=== PATIENT | female | born 1960 | race African-American/Black ===

== ENCOUNTER 2020-07-29 20:46 | Inpatient (IN) | payer OTHER ==
[~2020-07-29] VITALS: Ht 167.6 cm; Wt 67.2 kg
--- NOTE | 2020-07-29 20:49 | NUR ---
PT AAOX0, VENT DEP, BIBPA FROM [facility] FOR HGB OF 4.9. PT PLACED IN BED 8 ON SAUSAGE MIXER AND PULSE OX. UPON ASSESSMENT PT CONTRACTED, HAS A TONEY CATH, G TUBE, VENT (SETTINGS IN THE NEXT NOTE.) RT WAS CALLED TO PLACE THE PT ON VENT. MD AWARE. IV 18G PLACED ON L HAND, BLOOD DRAWN, LABELED, SENT TO LAB. AWAITING MD FOR ORDERS AND EVAL. WILL CONTINUE TO MONITOR.
--- NOTE | 2020-07-29 21:08 | NUR ---
PT TEMP 94.6. WARMING MEASURES INITIATED.
--- NOTE | 2020-07-29 21:13 | NUR ---
NOTED SACRAL AREA ST 4 WITH SURROUNDING SCAR TISSUE 12.5X8X3.2 CM.
--- NOTE | 2020-07-29 21:16 | NUR ---
RT NOTE Pt rec'd trached on [facility] vent on AC mode settings given from transport RT. Pt shows no signs of resp distress or sob. Trach is patent and secured. pt sx'd for mod amt of pale yellow secretions. Vent plugged into red outlet. Ambu bag and emergency spare trach bedside. Alarms are set and audible. Will continue to monitor. Addendum: 07/29/20 at 2117 by DANUTA LI RT Amended: Links added.
[2020-07-29 21:24] LABS: BASOPHILS % (AUTO) 0.5 % (0.0-2.0); EOSINOPHILS % (AUTO) 0.2 % (0.0-6.0); LYMPHOCYTES # (AUTO) 0.6 /CMM (0.8-4.8); LYMPHOCYTES % (AUTO) 6.4 % (20.0-44.0); MEAN CORPUSCULAR HGB CONC 29 g/dl (31.0-36.0); MEAN CORPUSCULAR VOLUME 75 fL (82-100); MONOCYTES # (AUTO) 0.4 /CMM (0.1-1.30); MONOCYTES % (AUTO) 4.6 % (2.0-12.0); NEUTROPHILS # (AUTO) 8.5 /CMM (1.8-8.9); NEUTROPHILS % (AUTO) 88.3 % (43.0-81.0); PLATELET COUNT (AUTO) 837 /CMM (150-450); RED BLOOD CELL COUNT(AUTO) 2.64 MIL/uL (4.0-5.2); WHITE BLOOD COUNT (AUTO) 9.6 K/uL (4.3-11.0)
--- NOTE | 2020-07-29 21:26 | NUR ---
VENT SETTINGS: PORTEX 8 DCT AC 12 TV 400 O2 40% PEEP 5.0
--- NOTE | 2020-07-29 21:28 | NUR ---
RADIOLOGY AT BEDSIDE FOR XRAY
[2020-07-29 21:36] LABS: CALCIUM, SERUM 9.5 mg/dL (8.5-10.1); CARBON DIOXIDE 30 mmol/L (21-32); CHLORIDE 101 mmol/L (98-107); CREATININE 1.4 mg/dL (0.6-1.3); GLUCOSE 119 mg/dL (74-106); POTASSIUM 4.2 mmol/L (3.5-5.1); SODIUM SERUM 139 mmol/L (136-145); UREA NITROGEN, BLOOD 54 mg/dL (7-18)
--- NOTE | 2020-07-29 21:39 | NUR ---
CALLED RT TO TAKE PT TO CT.
[2020-07-29 21:41] LABS: ALANINE AMINOTRANSFERASE 23 U/L (12-78); ALBUMIN 1.5 g/dL (3.4-5.0); ALKALINE PHOSPHATASE 138 U/L (46-116); ASPARTATE AMINOTRANSFERASE 20 U/L (15-37); BILIRUBIN,TOTAL 0.1 mg/dL (0.2-1.0); HEMOGLOBIN 5.8 g/dL (11.5-14.8); LIPASE 174 U/L (73-393); TOTAL PROTEIN, SERUM 7.4 g/dL (6.4-8.2)
--- NOTE | 2020-07-29 21:41 | NUR ---
HGB 5.8
--- NOTE | 2020-07-29 21:41 | NUR ---
CALLED LAB FOR COVID SWAB
[2020-07-29 21:42] LABS: HEMATOCRIT 20 % (33-45)
--- NOTE | 2020-07-29 21:52 | NUR ---
BROUGHT BACK FROM CT
--- NOTE | 2020-07-29 21:52 | NUR ---
MIGUELID SWABBED, SENT TO LAB.
[2020-07-29] MEDS ORDERED: MEROPENEM 1,000 MG in IV NS 0.9% 100 ML IV ONE (22:00)
[2020-07-29] MEDS ORDERED: MEROPENEM 1 G VIAL IV ONE (22:03)
--- NOTE | 2020-07-29 22:08 | NUR ---
RT AT BEDSIDE FOR ABG
--- NOTE | 2020-07-29 22:32 | NUR ---
CALL FROM LAB. COVID NEGATIVE.
[2020-07-29 22:37] LABS: ABG BASE EXCESS 1.9 mmol/L; ABG PCO2 36.4 mmHg (35.0-45.0); ABG PH 7.468 (7.350-7.450); ABG PO2 159.5 mmHg (75.0-100.0); AaDO2 83.8 mmHg; COHb 1.2 % (0.5-1.5); MetHb 0.7 % (0.0-1.5); O2Hb 97.1 % (94.0-97.0); SITE, ABG Right Brachial; VENT MODE, BG AC 12 400 40% +5
--- NOTE | 2020-07-29 22:44 | NUR ---
CALLED TO GIVE REPORT. NURSE NOT AVAILABLE
--- NOTE | 2020-07-29 22:57 | NUR ---
CALLED TO GIVE REPORT, UNAVAILABLE.
--- NOTE | 2020-07-29 23:13 | NUR ---
REPORT GIVEN TO ELVIS LINCOLN FOR HAILEY
[2020-07-29] MEDS ORDERED: DOCU50LI GT (23:21)
[2020-07-29] MEDS ORDERED: INSU100V7 SQ (23:21)
[2020-07-29] MEDS ORDERED: FAMO20TA8 GT (23:21)
[2020-07-29] MEDS ORDERED: FOLI0.8T2 GT (23:21)
[2020-07-29] MEDS ORDERED: AMLO10TA7 GT (23:21)
[2020-07-29] MEDS ORDERED: HYDR100T27 GT (23:21)
[2020-07-29] MEDS ORDERED: HYDR-4384 GT ×2 (23:21)
[2020-07-29] MEDS ORDERED: NUTR1PAC14 GT (23:21)
[2020-07-29] MEDS ORDERED: INSU100V3 SQ (23:21)
[2020-07-29] MEDS ORDERED: ZINC220T4 GT (23:21)
[2020-07-29] MEDS ORDERED: ROPI0.255 GT (23:21)
[2020-07-29] MEDS ORDERED: ASCO-340 GT (23:21)
[2020-07-29] MEDS ORDERED: FERR220S2 GT (23:21)
[2020-07-29] MEDS ORDERED: ATOR10TA GT (23:21)
[2020-07-29] MEDS ORDERED: SODI100037 GT (23:21)
[2020-07-29] MEDS ORDERED: CLON0.5T4 GT (23:21)
[2020-07-29] MEDS ORDERED: FOLI0.4T2 GT (23:21)
[2020-07-29] MEDS ORDERED: AMIN30LI2 GT (23:21)
[2020-07-29] MEDS ORDERED: METO25TA6 GT (23:21)
[2020-07-29] MEDS ORDERED: LAMO25TA10 GT (23:21)
[2020-07-29] MEDS ORDERED: CITR15SO GT (23:21)
[2020-07-29] MEDS ORDERED: EPOE1000 SQ (23:21)
[2020-07-29] MEDS ORDERED: ASPI-1169 GT (23:21)
--- NOTE | 2020-07-29 23:25 | NUR ---
PT TRANSFERERD PER ACLS PROTOCOL
--- NOTE | 2020-07-29 23:30 | NUR ---
TANK SETTER NOTES RECEIVED PT FORM ER VIA SOPHIE ON TRACH/VENT SETTING ORDER SPO2 100% NO SIGN AND SYMPTOMS OF DISTRESS, SAFELY TRANSFER TO BED V/S CHECKED AND RECORDED, HEAD TO TOE ASSESSMENT DONE, VENT PLUGGED TO RED OUTLET, PT HAVE GTUBE ON PLACE FLUSHED AND O RESIDUAL, PT HAVE LEFT HAND #18 IV PATENT AND FLUSHED NO INFILTRATION NOTED, DR. LYNN ALREADY GIVE ORDER VIA PHONE CALL TO ER STAFF, NOTED AND CARRIED OUT, FOR BLOOD TRANSFUSION CONSENT ALREADY SECURED AT ER ABO TYPING ALSO DONE PT HAVE TONEY WITH YELLOW URINE FLOWING VIA GRAVITY, COVID 19 NEGATIVE SAFETY MEASURE INITIATED BED ON LOWEST POSITION AND LOCKED SIDE RAILS UP X 3 WILL CONT TO MONITOR
[2020-07-30] VITALS (17 sets, daily range): BP systolic 101–130; BP diastolic 37–90
[2020-07-30] MEDS ORDERED: ACETAMINOPHEN 650 MG/SUPP.RECT RC PRN
[2020-07-30] MEDS ORDERED: ONDANSETRON HCL/PF 4 MG/2 ML VIAL IV PRN
[2020-07-30] MEDS ORDERED: IV NS 0.9% 1,000 ML IV ONE
[2020-07-30 00:05] LABS: BAND % (MANUAL) 1 % (0.0-5.0); LYMPHOCYTES % (MANUAL) 8 % (16-48); MONOCYTES % (MANUAL) 3 % (0-11.0); NEUTROPHILS % (MANUAL) 87 (42-76); REACTIVE LYMPHOCYTES 1 % (0-0)
--- NOTE | 2020-07-30 00:47 | NUR ---
RN NOTES BLOOD TRANSFUSION STARTED WITH INITIAL V/S 120/56 HR 100 TEMP 97.8 SPO2 100% BLOOD VERIFICATION DONE WILL CONT TO MONITOR
--- NOTE | 2020-07-30 01:07 | NUR ---
RN NOTES BLOOD TRANSFUSION STILL ONGOING WITH CURRENT V/S 113/56 HR 97 RR 20 TEMP 97.9 SPO2 100% NO BLOOD TRANSFUSION REACTION NOTED AT THIS TIME WILL CONT TO MONITOR
--- NOTE | 2020-07-30 03:29 | NUR ---
RN NOTES 1ST BAG OF PRBC TRANSFUSION COMPLETED WITH LATEST V/S OF 114/90 HR 102 RR 16 TEMP 97.8 SPO2 100% NO TRANSFUSION REACTION NOTED WILL CONT TO MONITOR
--- NOTE | 2020-07-30 03:39 | NUR ---
RN NOTES 2ND BAG OF PRBC STARTED TO TRANSFUSE WITH LATEST V/S 114/90 HR 105 RR 16 TEMP 97.8 SPO2 100% WILL CONT TO MONITOR
--- NOTE | 2020-07-30 04:30 | NUR ---
RN NOTES 2ND BAG OF PRBC STILL TRANSFUSING WITH LATEST V/S 119/66 HR 103 RR 16TEMP 97.6 SPO2 100% NO TRANSFUSION REACTION NOTED WILL CONT TO MONITOR
--- NOTE | 2020-07-30 06:00 | NUR ---
RN NOTES BLOOD TRANSFUSION COMPLETED WITH LATEST V/S 107/50 HR 110 RR 16 TEMP 97.8 SPO2 100 WITH NO SIGN AND SYMPTOMS OF TRANSFUSION REACTION NOTED WILL CONT TO MONITOR
--- NOTE | 2020-07-30 06:26 | NUR ---
RN NOTES CALLED DR. LYNN REGARDING THE HOME MEDICATION OF THE PT, HE SAID HE WILL SEE THE PT THEN HE WILL RECONCILE THE MEDICATION PT IS NPO FOR NOW
--- NOTE | 2020-07-30 06:37 | NUR ---
CALLED PT SON MR. WILKINS AND ASK ABOUT THE FLU VACCINE AND PNEUMONIA VACCINE IF THEY WANT IT TO BE ADMINISTER TO HIS MOTHER, PT SON MR WILKINS REFUSED THE VACCINE, RISK AND BENEFITS EXPLAINED BUT HE STILL REFUSING NOTED AND CARRIED OUT
--- NOTE | 2020-07-30 06:51 | NUR ---
RN NOTES PT ON BED NO SIGN AND SYMPTOMS OF DISTRESS STILL ON TRACH/VENT SETTING ORDER SPO2 98% TELE MONITOR READS SINUS RHYTHM 90'S TO SINUS TACHY 110'S SAFETY MEASURE MAINTAINED BED ON LOWEST POSITION AND LOCKED SIDE RAILS UP X 2, PT STILL NPO UNTIL FURTHER ORDERS NO SIGNIFICANT CHANGES ON CONDITION NOTED ALL NEEDS ATTENDED WILL ENDORSE TO AM SHIFT NURSE
--- NOTE | 2020-07-30 07:30 | NUR ---
NADYA RN AM NOTES RECEIVED PT IN BED, OPENS EYES, WITH PORTEX 7 TRACH TO MECHANICAL VENT SETTING - AC 12 TV 400 FIO2 40% PEEP 5, BREATHING EVEN AND UNLABORED, NO SIGN AND SYMPTOMS OF DISTRESS, SINUS RHYTHM TO SINUS TACHY ON HEART MONITOR, HR 106, NO SIGNS OF PAIN, PT HAVE LEFT HAND #18 IV,FLUSHES WELL, SITE CLEAR. ONGOING NS AT 75 ML/HR. PT HAVE GTUBE IN PLACE, CHECKED FOR PLACEMENT, O RESIDUAL, CLAMPED FOR NOW. TONEY CATH IN PLACE, DRAINING YELLOW COLORED URINE, CLEAR, ADEQUATE AMOUNT VIA GRAVITY, SEE NURSING FLOWSHEET FOR SKIN ISSUES. FOR WOUND CONSULT. WAITING FOR DR. LYNN TO SEE PATIENT AND FOR FURTHER ORDERS. WILL TURN AND REPOSITION Q [address] ME[address] PL[address].BED LOW AND LOCKED, SR UP X2, WILL CONTINUE TO MONITOR.
[2020-07-30 08:35] LABS: BASOPHILS % (AUTO) 0.3 % (0.0-2.0); EOSINOPHILS % (AUTO) 0.2 % (0.0-6.0); HEMATOCRIT 26 % (33-45); LYMPHOCYTES # (AUTO) 0.4 /CMM (0.8-4.8); LYMPHOCYTES % (AUTO) 5.5 % (20.0-44.0); MEAN CORPUSCULAR HGB CONC 31 g/dl (31.0-36.0); MEAN CORPUSCULAR VOLUME 77 fL (82-100); MONOCYTES # (AUTO) 0.4 /CMM (0.1-1.30); MONOCYTES % (AUTO) 4.9 % (2.0-12.0); NEUTROPHILS % (AUTO) 89.1 % (43.0-81.0); PLATELET COUNT (AUTO) 746 /CMM (150-450); RED BLOOD CELL COUNT(AUTO) 3.36 MIL/uL (4.0-5.2); WHITE BLOOD COUNT (AUTO) 7.9 K/uL (4.3-11.0)
[2020-07-30] MEDS: PANTOPRAZOLE 40 MG VIAL IV SCH ×2 (08:38→22:11)
[2020-07-30 08:47] LABS: CALCIUM, SERUM 9.3 mg/dL (8.5-10.1); CREATININE 1.4 mg/dL (0.6-1.3); POTASSIUM 4.2 mmol/L (3.5-5.1)
--- NOTE | 2020-07-30 09:30 | NUR ---
RN NOTES DUE MEDS GIVEN
[2020-07-30] MEDS: FAMOTIDINE/PF INJ 20 MG/2 ML VIAL IV SCH ×2 (10:11→22:15)
[2020-07-30] MEDS ORDERED: NEPRO 1,000 ML BOTTLE GT PRN ×2 (11:30→13:33)
[2020-07-30] MEDS ORDERED: DEXTROSE 50%-WATER 50 ML DISP.SYRIN IV PRN (11:30)
[2020-07-30] MEDS ORDERED: HYDROCODONE/APAP 5/325MG TABLET GT SCH (11:30)
[2020-07-30] MEDS: BLOOD SUGAR DIAGNOSTIC 1 EACH STRIP IN SCH ×3 (12:11→22:52)
[2020-07-30] MEDS: clonazePAM 0.5 MG TABLET GT SCH ×2 (12:17→22:14)
[2020-07-30] MEDS ORDERED: PIPERACILLIN /TAZOBACTAM 3.375 G in IV D5W 100 ML IV SCH (13:00)
[2020-07-30] MEDS ORDERED: PIPERACILLIN /TAZOBACTAM 3.375 G in IV D5W 50 ML IV ONE (13:00)
[2020-07-30] MEDS: hydrALAZINE HCL 50 MG TABLET GT SCH ×2 (13:00→22:15)
[2020-07-30] MEDS ORDERED: MEROPENEM 1 G in IV NS 0.9% 100 ML IV ONE (13:30)
--- NOTE | 2020-07-30 13:39 | NUR ---
RN NOTES CRITICAL RESULTS CALLED IN TO DR. LYNN: FIBRINOGEN >900 AND APTT 84.2. NO NEW ORDERS RECEIVED.
[2020-07-30] MEDS: SOD FERRIC GLUC 125 MG in IV NS 0.9% 100 ML IV SCH (14:06)
[2020-07-30 14:07] LABS: D-DIMER 0.62 mg/L(FEU (0.17-0.50); PLATELET COUNT (AUTO) 746 /CMM (150-450)
[2020-07-30] MEDS: ropiniROLE 0.5 MG TABLET GT SCH ×2 (14:08→22:10)
--- NOTE | 2020-07-30 16:38 | NUR ---
RN NOTES SPECIMEN FOR OCCULT BLOOD STOOL COLLECTED AND CALLED IN TO [facility] FOR TIRE VULCANIZER
[2020-07-30] MEDS: DOCUSATE SODIUM LIQ 100 MG/10 ML UDC GT SCH (17:09)
--- NOTE | 2020-07-30 18:14 | NUR ---
LINESPERSON CLOSING NOTES: PT RESTING IN BED, NON-VERBAL. WITH SHILEY 8 TRACH TO MECHANICAL VENT - SETTINGS AC 12 TV 450 FIO2 30%, PEEP 5, 95% O2. SINUS TACH HR 107. NO SIGNS OF PAIN, LEFT HAND G 18 NS AT TKO, SITE CLEAR. G-TUBE FEEDING RUNNING AT 35 ML/HOUR. FLUSHED WITH WATER. PLACEMENT CHECKED WITH [address]ONEY CATH IN PL[address] WITH ADEQUATE AMOUNT OF YELLOW COLORED URINE WITH 1100 ML OUTPUT. BED IN LOCKED AND LOWEST POSITION. TURNED AND REPOSITIONED Q 2 HOURS. PERFORMED PM CARE AND PRESCRIBED WOUND TREATMENT. SAFETY MEASURES IMPLEMENTED. CALL LIGHT WITHIN REACH. ALL NEEDS MET. WILL ENDORSE TO NEXT SHIFT FOR HAILEY.
[2020-07-30 21:00] LABS: OCCULT BLOOD STOOL NEGATIVE (NEGATIVE)
[2020-07-30] MEDS: METOPROLOL TARTRATE 25 MG TABLET GT SCH (22:11)
[2020-07-30] MEDS: ATORVASTATIN 10 MG TABLET GT SCH (22:15)
[2020-07-30] MEDS: MEROPENEM 1 G in IV NS 0.9% 100 ML IV SCH (22:15)
[2020-07-30] MEDS: MORPHINE SULFATE INJ 2 MG/ML DISP.SYRIN IV PRN (22:19)
[2020-07-30] MEDS: INSULIN REGULAR, HUMAN 100 UNIT/ML 3 ML VIAL SQ PRN (22:51)
[2020-07-30] MEDS: INSULIN GLARGINE, 100 UNIT/ML CARTRIDGE SQ SCH (22:55)
[2020-07-31] VITALS: BP_SYST 113; BP_SYST 141; BP_DIAS 37; BP_DIAS 85
[2020-07-31 04:00] VITALS: BP 113/46
[2020-07-31] MEDS: ropiniROLE 0.5 MG TABLET GT SCH ×3 (05:21→21:17)
[2020-07-31] MEDS: clonazePAM 0.5 MG TABLET GT SCH ×3 (05:22→21:17)
[2020-07-31] MEDS: MEROPENEM 1 G in IV NS 0.9% 100 ML IV SCH ×3 (05:22→21:14)
[2020-07-31] MEDS: hydrALAZINE HCL 50 MG TABLET GT SCH ×3 (05:22→21:00)
[2020-07-31] MEDS: INSULIN REGULAR, HUMAN 100 UNIT/ML 3 ML VIAL SQ PRN ×3 (05:23→22:49)
[2020-07-31] MEDS: BLOOD SUGAR DIAGNOSTIC 1 EACH STRIP IN SCH ×4 (05:23→22:48)
[2020-07-31 05:53] LABS: BASOPHILS % (AUTO) 0.4 % (0.0-2.0); EOSINOPHILS % (AUTO) 0.4 % (0.0-6.0); HEMATOCRIT 25 % (33-45); HEMOGLOBIN 7.6 g/dL (11.5-14.8); LYMPHOCYTES # (AUTO) 0.8 /CMM (0.8-4.8); MEAN CORPUSCULAR HGB CONC 31 g/dl (31.0-36.0); MEAN CORPUSCULAR VOLUME 78 fL (82-100); MONOCYTES # (AUTO) 0.7 /CMM (0.1-1.30); MONOCYTES % (AUTO) 8.3 % (2.0-12.0); NEUTROPHILS # (AUTO) 6.5 /CMM (1.8-8.9); NEUTROPHILS % (AUTO) 80.9 % (43.0-81.0); PLATELET COUNT (AUTO) 748 /CMM (150-450); RED BLOOD CELL COUNT(AUTO) 3.15 MIL/uL (4.0-5.2); WHITE BLOOD COUNT (AUTO) 8.1 K/uL (4.3-11.0)
--- NOTE | 2020-07-31 06:30 | NUR ---
RN notes Resting comfortably in bed with no distress noted. Breathing even and unlabored. Vent setting well tolerated well. Obtunded, non verbal. No physical manifestation of pain or discomfort. Vital signs wnl. No significant change of condition. Kept clean and dry. Will endorse to next shift for continuity of care. Addendum: 07/31/20 at 0638 by TALIA ARVIZU RN RN notes Resting comfortably in bed with no distress noted. Breathing even and unlabored. Vent setting well tolerated well. Obtunded, non verbal. No physical manifestation of pain or discomfort except during treatment of sacral wounds. Morphine IV administered, with relief. Vital signs wnl. No significant change of condition. Kept clean and dry. Will endorse to next shift for continuity of care.
[2020-07-31 06:34] LABS: CALCIUM, SERUM 9.1 mg/dL (8.5-10.1); CREATININE 1.5 mg/dL (0.6-1.3); POTASSIUM 3.9 mmol/L (3.5-5.1)
[2020-07-31 08:00] VITALS: BP 103/50
--- NOTE | 2020-07-31 08:37 | NUR ---
WOUND CARE CONSULT: PT PRESENTS WITH STAGE 4 ULCER TO SACRUM AND STAGE 3 ULCER TO RT POSTERIOR BUTTOCK/THIGH AREA, PRESENT ON ADMISSION. RECOMMEND SURGICAL CONSULT. DR MOODY NOTIFIED OF CONSULT REQUEST. RECOMMENDATIONS MADE FOR SKIN PROTECTION. DISCUSSED WITH NURSING STAFF. [facility] IN AGREEMENT WITH PLAN OF CARE. Addendum: 07/31/20 at 0838 by SARY INIGUEZ WNDNU Amended: Links added.
[2020-07-31] MEDS: AMLODIPINE BESYLATE 10 MG TABLET GT SCH (09:00)
[2020-07-31] MEDS ORDERED: Z GUARD REMEDY 2 OZ OINT TP PRN (09:00)
[2020-07-31] MEDS ORDERED: FAMOTIDINE (20 MG) 20 MG TABLET GT SCH (09:00)
[2020-07-31] MEDS: METOPROLOL TARTRATE 25 MG TABLET GT SCH ×2 (09:00→21:00)
[2020-07-31] MEDS: LamoTRIgine 25 MG TABLET GT SCH (09:28)
[2020-07-31] MEDS: ASPIRIN 81 MG TAB.CHEW GT SCH (09:29)
[2020-07-31] MEDS: FAMOTIDINE/PF INJ 20 MG/2 ML VIAL IV SCH ×2 (09:31→21:09)
[2020-07-31] MEDS: PANTOPRAZOLE 40 MG VIAL IV SCH ×2 (09:31→21:10)
[2020-07-31] MEDS: Z GUARD REMEDY 2 OZ OINT TP SCH (09:32)
[2020-07-31] MEDS: INSULIN GLARGINE, 100 UNIT/ML CARTRIDGE SQ SCH ×2 (09:43→21:00)
[2020-07-31] MEDS: DAKINS QUARTER STRENGTH (0.125%) 480 ML BOTTLE TOP SCH (10:00)
[2020-07-31] MEDS ORDERED: LIDOCAINE 1%-EPI 1:100,000 20 ML VIAL TP ONE (10:30)
[2020-07-31] MEDS ORDERED: SILVER NITRATE APPLICATOR 1 EA BOX TP PRN (10:30)
--- NOTE | 2020-07-31 11:47 | NUR ---
fever 99.8, will give PRN tylenol
[2020-07-31 12:00] VITALS: BP 116/53
--- NOTE | 2020-07-31 12:45 | NUR ---
DEPLOYMENT MANAGER: got pt from SALAZ[facility] Mcclain, pt.is obtunded, can open eyes, no eyes contact, unable to follow commands, contracted/rigid, rest, no grimacing, O2sat. over 94%, no SOB, FiO2 40%, suctioned: small sputum amount, ordered resp.Tx, Chest PT, will notify RT, SR, SBP WNL by report, GTF residual WNL, all wound care done by report, Lidocaine is in cassette, plan: sacral debridement, L.hand PIVL: blood return+, last BG 101, ISS+, urinated well by report, Tmax 99.8/Tylenol+, Antbxs+, no acute bleeding by report, H/H 7.6/25
[2020-07-31] MEDS: IPRATROPIUM NEB FS 0.5 MG/2.5 ML AMPUL.NEB NEB SCH ×4 (13:00→23:55)
[2020-07-31] MEDS: ACETYLCYSTEINE 20% SOLN 800 MG/4 ML VIAL NEB SCH ×3 (13:00→23:55)
[2020-07-31] MEDS: ALBUTEROL HALF STRENGTH 1.25 MG/3 ML VIAL.NEB NEB SCH ×3 (13:00→21:25)
--- NOTE | 2020-07-31 13:37 | NUR ---
RN Opening notes Received patient in bed, on mechanical ventilator, AC 12 TV 400 FIO2 40% PEEP 5, O2 sat 99%, A/O x0, obtunded, on cardiac telemonitoring, sinus rhythm, Larson catheter draining to gravity, urine is clear yellow, contractures, sacral wound not stageable, Nepro 30ml/hr, tolerating diet, IV left hand #18 gauge running TKO at 3cc/hr.
--- NOTE | 2020-07-31 14:30 | NUR ---
KEYMODULE ASSEMBLY SUPERVISOR: notified RT Divya regarding new orders
[2020-07-31] MEDS: SOD FERRIC GLUC 125 MG in IV NS 0.9% 100 ML IV SCH (14:49)
[2020-07-31 16:00] VITALS: BP 107/50
--- NOTE | 2020-07-31 16:00 | NUR ---
Got back patient from Eder, tolerating current settings well, cont to monitor
[2020-07-31 16:13] LABS: APPEARANCE,URINE CLEAR (CLEAR); BILIRUBIN,URINE NEGATIVE (NEGATIVE); BLOOD, URINE NEGATIVE Ery/uL (NEGATIVE); COLOR,URINE YELLOW (YELLOW); KETONES,URINE NEGATIVE (NEGATIVE); LEUKOCYTE ESTERASE ,URINE TRACE (NEGATIVE); NITRITE, URINE NEGATIVE (NEGATIVE); PH,URINE 7.5 (5.0-8.0); PROTEIN,URINE 30 mg/dl (NEGATIVE); UGLUCOSE NEGATIVE (NEGATIVE); UROBILINOGEN,URINE 0.2 EU/dL (0.2)
[2020-07-31 16:20] LABS: CREATININE, URINE 28.8 MG/DL (30.0-125.0); URINE TOTAL PROTEIN 67.6 mg/dL (0-11.9)
[2020-07-31 16:40] LABS: BACTERIA,URINE RARE /HPF (None Seen); RBC,URINE 0-2 /HPF (0-2); SQUAMOUS EPITHELIAL CELL,UR 0-2 /HPF (None Seen)
[2020-07-31 16:59] LABS: EOSINOPHIL,URINE None Seen
--- NOTE | 2020-07-31 17:28 | NUR ---
Checked patient blood glucose at 1720 using Acu check . BG was 71 so rechecked and got 80.
[2020-07-31] MEDS: DOCUSATE SODIUM LIQ 100 MG/10 ML UDC GT SCH (18:10)
--- NOTE | 2020-07-31 19:08 | NUR ---
RN CLOSING NOTES Patient is in room , tolerating vent settings well, no change on status, Larson cath in place, output is 750cc, with clear, yellow urine. Tele-monitor shows SR 84s. Wound care provided, comfort needs attended , safety measures implemented, bed is locked, call light in reach, HOB elevated, will endorse to PM shift RN for HAILEY
--- NOTE | 2020-07-31 19:50 | NUR ---
RT Pt received trached on mechanical ventilation with noted settings. Vent alarms are set and audible with BVM and spare trach by bedside. No SOB or respiratory distress noted. Addendum: 08/01/20 at 0532 by SERENITY BANUELOS RT Amended: Links added.
[2020-07-31 20:00] VITALS: BP 95/56
[2020-07-31] MEDS: ATORVASTATIN 10 MG TABLET GT SCH (21:19)
[2020-08-01] VITALS: BP 97/62
[2020-08-01] MEDS: ALBUTEROL HALF STRENGTH 1.25 MG/3 ML VIAL.NEB NEB SCH ×6 (00:59→23:53)
[2020-08-01] MEDS: IPRATROPIUM NEB FS 0.5 MG/2.5 ML AMPUL.NEB NEB SCH ×6 (03:35→23:53)
[2020-08-01 04:00] VITALS: BP 97/62
[2020-08-01] MEDS: MORPHINE SULFATE INJ 2 MG/ML DISP.SYRIN IV PRN (04:13)
--- NOTE | 2020-08-01 04:15 | NUR ---
RN notes Received patient in bed resting comfortably. No apparent distress noted. Breathing even and unlabored. Vent setting well tolerated well. Obtunded, non verbal. Facial grimacing noted during sacral wound treatment. MOS4 administered, with relief. Vital signs wnl. No significant change of condition. Kept clean and dry. Will endorse to next shift for continuity of care.
[2020-08-01] MEDS: clonazePAM 0.5 MG TABLET GT SCH ×3 (04:42→21:29)
[2020-08-01] MEDS: ropiniROLE 0.5 MG TABLET GT SCH ×3 (04:43→21:29)
[2020-08-01] MEDS: MEROPENEM 1 G in IV NS 0.9% 100 ML IV SCH ×3 (04:44→21:33)
[2020-08-01] MEDS: hydrALAZINE HCL 50 MG TABLET GT SCH ×3 (04:49→21:31)
[2020-08-01] MEDS: BLOOD SUGAR DIAGNOSTIC 1 EACH STRIP IN SCH ×4 (04:50→21:53)
[2020-08-01 06:49] LABS: BASOPHILS % (AUTO) 0.5 % (0.0-2.0); EOSINOPHILS % (AUTO) 0.6 % (0.0-6.0); HEMATOCRIT 23 % (33-45); HEMOGLOBIN 7.2 g/dL (11.5-14.8); LYMPHOCYTES # (AUTO) 1.1 /CMM (0.8-4.8); LYMPHOCYTES % (AUTO) 14.8 % (20.0-44.0); MEAN CORPUSCULAR HGB CONC 31 g/dl (31.0-36.0); MEAN CORPUSCULAR VOLUME 78 fL (82-100); MONOCYTES # (AUTO) 0.6 /CMM (0.1-1.30); MONOCYTES % (AUTO) 7.2 % (2.0-12.0); NEUTROPHILS # (AUTO) 5.9 /CMM (1.8-8.9); NEUTROPHILS % (AUTO) 76.9 % (43.0-81.0); PLATELET COUNT (AUTO) 680 /CMM (150-450); RED BLOOD CELL COUNT(AUTO) 3.01 MIL/uL (4.0-5.2); WHITE BLOOD COUNT (AUTO) 7.7 K/uL (4.3-11.0)
[2020-08-01 07:15] LABS: BILIRUBIN,TOTAL 0.1 mg/dL (0.2-1.0); CALCIUM, SERUM 8.7 mg/dL (8.5-10.1); CREATININE 1.5 mg/dL (0.6-1.3); MAGNESIUM 2.4 mg/dL (1.8-2.4); PHOSPHORUS 3.1 mg/dL (2.5-4.9); POTASSIUM 3.5 mmol/L (3.5-5.1); TOTAL PROTEIN, SERUM 6.6 g/dL (6.4-8.2)
[2020-08-01 07:23] LABS: ALBUMIN 1.3 g/dL (3.4-5.0)
--- NOTE | 2020-08-01 07:40 | NUR ---
RT PATIENT REC'D TRACHED ON [facility] VENT, NO MARLIN BURNETTE BAG AT HOB Addendum: 08/01/20 at 1701 by KAIN AMARO RT Amended: Links added.
[2020-08-01] MEDS: ACETYLCYSTEINE 20% SOLN 800 MG/4 ML VIAL NEB SCH ×3 (07:47→23:53)
[2020-08-01 08:00] VITALS: BP_SYST 116; BP_SYST 139; BP_DIAS 73
--- NOTE | 2020-08-01 08:04 | NUR ---
PHOTOGRAPH PRINTER NOTE: PT IN BED WITH EYES OPEN, OBTUNDED. PT ON PRESCRIBED TRACH/VENT SETTINGS: PORTEX #8, AC 12, TV 400, FIO2 40%, PEEP 5. NO RESPIRATORY DISTRESS, SOB. PT HAS LEFT HAND AC #18, INTACT AND TKO. NO SIGNS OF INFILTRATION OR INFECTION. PT ON MONITOR SHOWING SINUS RHYTHM. PT HAS SACRAL WOUND PACKED WITH DAKINS GAUZE. DRESSING INTACT AND DRY. PT HAS G-TUBE, INTACT AND RUNNING NEPRO AT 30 ML/HR. PT IN BED LOCKED LOWEST POSITION. CALL LIGHT WITHIN REACH. ALL SAFETY MEASURES IN PLACE. WILL CONTINUE TO MONITOR CLOSELY.
--- NOTE | 2020-08-01 08:30 | NUR ---
CATALYST UNIT OPERATOR NOTE: PT TEMP ELEVATED AT 100.1, COOLING MEASURES IN PLACE, ICE PACKS PLACED IN THE AXILLARY BILATERALLY
[2020-08-01] MEDS: ASPIRIN 81 MG TAB.CHEW GT SCH (08:35)
[2020-08-01] MEDS: METOPROLOL TARTRATE 25 MG TABLET GT SCH ×2 (08:36→21:31)
[2020-08-01] MEDS: PANTOPRAZOLE 40 MG VIAL IV SCH (08:38)
[2020-08-01] MEDS: FAMOTIDINE/PF INJ 20 MG/2 ML VIAL IV SCH (08:38)
[2020-08-01] MEDS: AMLODIPINE BESYLATE 10 MG TABLET GT SCH (08:38)
[2020-08-01] MEDS: LamoTRIgine 25 MG TABLET GT SCH (08:38)
[2020-08-01] MEDS: Z GUARD REMEDY 2 OZ OINT TP SCH (09:18)
[2020-08-01] MEDS: DAKINS QUARTER STRENGTH (0.125%) 480 ML BOTTLE TOP SCH (09:19)
[2020-08-01] MEDS: INSULIN GLARGINE, 100 UNIT/ML CARTRIDGE SQ SCH ×2 (09:28→21:52)
[2020-08-01 12:00] VITALS: BP 105/55
--- NOTE | 2020-08-01 12:00 | NUR ---
STOCK PATCH SAWYER NOTE: PT TEMP DECREASED TO 95.5. COOLING MEASURES D/C.
--- NOTE | 2020-08-01 12:40 | NUR ---
MAILING MACHINE OPERATOR NOTE: 1300 DENITA DOSE OF HYDRALAZINE HELD. BP 105/55, PULSE 85.
--- NOTE | 2020-08-01 13:33 | NUR ---
SALES REPRESENTATIVE RAW FIBERS NOTE: PER PHARMACY, RN TO DELAY ADMINISTERING 1400 DOSE OF FERRLECIT IV UNTIL MERREM ABX IV COMPLETE.
[2020-08-01] MEDS: SOD FERRIC GLUC 125 MG in IV NS 0.9% 100 ML IV SCH (15:09)
[2020-08-01 16:00] VITALS: BP 108/42
[2020-08-01] MEDS: DOCUSATE SODIUM LIQ 100 MG/10 ML UDC GT SCH (18:09)
[2020-08-01] MEDS: INSULIN REGULAR, HUMAN 100 UNIT/ML 3 ML VIAL SQ PRN (18:12)
--- NOTE | 2020-08-01 18:35 | NUR ---
DISPUTE RESOLUTION SPECIALIST NOTE: PT IN BED, EYES OPEN BUT NONVERBAL, OBTUNDED. PT ON PRESCRIBED TRACH/VENT SETTINGS: PORTEX #7, AC 12, TV 400, FIO2 40%, PEEP 5. NO SIGNS OF RESPIRATORY DISTRESS, SOB. PT ON EXTERNAL CREPING MACHINE OPERATOR HELPER SHOWING ST 109, PT HAS TONEY CATHETER WITH CLEAR YELLOW URINE DRAINING, U/O 800 THIS SHIFT. PT HAS LEFT HAND IV #18 RUNNING TKO. PT HAS G-TUBE RUNNING NEPRO @30 ML/HR. G-TUBE INTACT, NO SIGNS OF LEAKING WITH MINIMAL RESIDUAL. ALL WOUND TX COMPLETED, DRESSINGS DRY AND INTACT. PT IN BED LOWEST LOCKED POSITION. CALL LIGHT WITHIN REACH. ALL SAFETY MEASURES IN PLACE. WILL GIVE REPORT TO ONCOMING RN FOR HAILEY.
--- NOTE | 2020-08-01 19:15 | NUR ---
RN NOTE PATIENT IS 60 Y/O FEMALE WITH DX OF ANEMIA. PATIENT IS OBTUNDED, VENT DEPENDANT, OPENS EYES. O2 SAT IS 94% AT THIS TIME. BREATHING IS EVEN AND UNLABORED. NO SOB NOTED AT THIS TIME. PATIENT IS BED BOUND. WOUND DRESSING NOTED ON SACRAL AREA. ON GTF NEPHRO RUNNING AT 30 ML/HR WITH 10 ML RESIDUAL NOTED. PATIENT ON TONEY CATH, URINE IS CLEAR AND YELLOW IN COLOR. IV SITE ON LEFT HAND GAUGE 18 IS CLEAN, DRY, AND PATENT. NO APPARENT DISTRESS NOTED AT THIS TIME. WILL CONTINUE TO MONITOR.
[2020-08-01 20:00] VITALS: BP 107/43
[2020-08-01] MEDS ORDERED: GLUCERNA 1.2 1,000 ML BOTTLE GT PRN (20:30)
[2020-08-01] MEDS: ATORVASTATIN 10 MG TABLET GT SCH (21:29)
[2020-08-01] MEDS: PANTOPRAZOLE 40 MG/PACK PACK GT SCH (21:29)
[2020-08-02] VITALS: BP 126/59
[2020-08-02] MEDS: ALBUTEROL HALF STRENGTH 1.25 MG/3 ML VIAL.NEB NEB SCH ×5 (03:27→20:20)
[2020-08-02] MEDS: IPRATROPIUM NEB FS 0.5 MG/2.5 ML AMPUL.NEB NEB SCH ×5 (03:27→20:20)
[2020-08-02 04:00] VITALS: BP 126/62
[2020-08-02] MEDS: clonazePAM 0.5 MG TABLET GT SCH ×3 (04:05→20:37)
[2020-08-02] MEDS: ropiniROLE 0.5 MG TABLET GT SCH ×3 (04:05→20:34)
[2020-08-02] MEDS: hydrALAZINE HCL 50 MG TABLET GT SCH ×3 (04:06→20:39)
[2020-08-02] MEDS: MEROPENEM 1 G in IV NS 0.9% 100 ML IV SCH ×3 (04:06→20:34)
[2020-08-02 06:43] LABS: BASOPHILS # (AUTO) 0.1 /CMM (0.0-0.2); BASOPHILS % (AUTO) 0.7 % (0.0-2.0); EOSINOPHILS % (AUTO) 1.2 % (0.0-6.0); HEMATOCRIT 23 % (33-45); HEMOGLOBIN 7.2 g/dL (11.5-14.8); LYMPHOCYTES # (AUTO) 1.1 /CMM (0.8-4.8); LYMPHOCYTES % (AUTO) 13.3 % (20.0-44.0); MEAN CORPUSCULAR HGB CONC 31 g/dl (31.0-36.0); MEAN CORPUSCULAR VOLUME 78 fL (82-100); MONOCYTES # (AUTO) 0.6 /CMM (0.1-1.30); MONOCYTES % (AUTO) 6.9 % (2.0-12.0); NEUTROPHILS # (AUTO) 6.3 /CMM (1.8-8.9); NEUTROPHILS % (AUTO) 77.9 % (43.0-81.0); PLATELET COUNT (AUTO) 686 /CMM (150-450); RED BLOOD CELL COUNT(AUTO) 3.01 MIL/uL (4.0-5.2)
[2020-08-02 06:51] LABS: CALCIUM, SERUM 8.6 mg/dL (8.5-10.1); CREATININE 1.2 mg/dL (0.6-1.3); MAGNESIUM 2.1 mg/dL (1.8-2.4); POTASSIUM 3.7 mmol/L (3.5-5.1)
--- NOTE | 2020-08-02 06:54 | NUR ---
RN NOTE PATIENT REMAINED STABLE THROUGHOUT THE NIGHT. NO SIGNIFICANT CHANGES NOTED. PATIENT IS KEPT CLEAN, DRY, AND COMFORTABLE. REPOSITIONED Q2H. ALL DUE MEDS GIVEN ORDERED AND TOLERATED WELL. IN NO APPARENT DISTRESS NOTED. ALL NEEDS ATTENDED AND MET. WILL CONTINUE TO MONITOR.
[2020-08-02] MEDS: ACETYLCYSTEINE 20% SOLN 800 MG/4 ML VIAL NEB SCH ×2 (07:37→15:08)
--- NOTE | 2020-08-02 07:51 | NUR ---
OBSERVER GRAVITY PROSPECTING NOTE: PT IS IN BED EYES CLOSED, AND OBTUNDED. PT ON PRESCRIBED TRACH/VENT SETTINGS: pORTEX #7, AC 12, TV 400, FIO2 40%, PEEP 5. NO RESPIRATORY DISTRESS OR SOB. O2 SATURATION 100 AT THIS TIME. PT ON PETROLEUM REFINERY LABORER SHOWS ST 109. PT HAS SACRAL WOUND PACKED WITH DAKINS GAUZE, DRESSING INTACT AND DRY AT THIS TIME. PT HAS LEFT HAND #18 IV, INTACT AND PATENT, NO SIGNS OF INFECTION OR INFILTRATION. G-TUBE PATENT WITH NO SIGNS OF LEAKING RUNNING GLUCERNA 1.2 @ 30 ML/HR. PT IN BED LOCKED LOWEST POSITION. CALL LIGHT WITHIN REACH. ALL SAFETY MEASURES IN PLACE. WILL CONTINUE TO MONITOR CLOSELY.
[2020-08-02 08:00] VITALS: BP 112/48
[2020-08-02] MEDS: METOPROLOL TARTRATE 25 MG TABLET GT SCH ×2 (08:58→20:40)
[2020-08-02] MEDS: ASPIRIN 81 MG TAB.CHEW GT SCH (08:59)
[2020-08-02] MEDS: PANTOPRAZOLE 40 MG/PACK PACK GT SCH ×2 (08:59→20:34)
[2020-08-02] MEDS: LamoTRIgine 25 MG TABLET GT SCH (08:59)
[2020-08-02] MEDS: AMLODIPINE BESYLATE 10 MG TABLET GT SCH (09:00)
[2020-08-02] MEDS: BLOOD SUGAR DIAGNOSTIC 1 EACH STRIP IN SCH ×4 (09:55→20:54)
[2020-08-02] MEDS: INSULIN GLARGINE, 100 UNIT/ML CARTRIDGE SQ SCH ×2 (09:55→20:57)
[2020-08-02] MEDS: DAKINS QUARTER STRENGTH (0.125%) 480 ML BOTTLE TOP SCH (09:55)
[2020-08-02] MEDS: Z GUARD REMEDY 2 OZ OINT TP SCH (09:56)
--- NOTE | 2020-08-02 10:00 | NUR ---
CIVIL ATTORNEY NOTE: G-TUBE FEEDING INCREASED FROM 30 ML/HR TO 60 ML/HR PER MD ORDER. RESIDUAL OF LESS THAN 10 ML.
[2020-08-02 12:00] VITALS: BP 116/45
[2020-08-02] MEDS: INSULIN REGULAR, HUMAN 100 UNIT/ML 3 ML VIAL SQ PRN ×2 (12:47→20:54)
--- NOTE | 2020-08-02 14:00 | NUR ---
CHLORINATOR NOTE: RN TO DELAY HANGING 1400 DOSE OF IV FERRLECIT UNTIL MERREM ABX IV COMPLETE, PER PHARMACY RECOMMENDATION OF IV COMPATIBILITY.
--- NOTE | 2020-08-02 15:30 | NUR ---
REINFORCED IRONWORKER NOTE: ALL WOUND TX COMPLETED, SACRAL WOUND WITH DAKINS GAUZE, ABDOMINAL PADS TO COVER. MEPILEX APPLIED TO RIGHT BUTTOCK. WOUND CULTURE COLLECTED AND SENT TO LAB
[2020-08-02 16:00] VITALS: BP 119/55
[2020-08-02] MEDS: SOD FERRIC GLUC 125 MG in IV NS 0.9% 100 ML IV SCH (17:09)
[2020-08-02] MEDS: DOCUSATE SODIUM LIQ 100 MG/10 ML UDC GT SCH (17:14)
--- NOTE | 2020-08-02 18:00 | NUR ---
REGIONAL SALES REPRESENTATIVE NOTE: DR. GALINDO NOTIFIED RN THAT INFECTIOUS DISEASE WILL CONSULT WITH PT. MD STATES POSSIBLE INFECTION CAUSING ANEMIA IN PT.
--- NOTE | 2020-08-02 18:58 | NUR ---
EDITOR NOTE: PT IN BED, EYES OPEN, OBTUNDED AND NONVERBAL. PT ON PRESCRIBED TRACH/VENT SETTINGS: PORTEX #7, AC 12, TV 400, FIO2 40%, PEEP 5. NO RESPIRATORY DISTRESS OR SOB. PT ON EXTERNAL MONITOR SHOWING SR 81. PT HAS TONEY DRAINING YELLOW CLEAR URINE, WITH 650 U/0 THIS SHIFT. PT HAS LEFT HAND #18 PIV, INTACT AND FLUSHED WELL, RUNNING TKO. NO SIGNS OF INFECTION OR INFILTRATION. ALL WOUND TX COMPLETE, DRESSINGS INTACT AND DRY. PT HAS G-TUBE RUNNING gLUCERNA 1.2 @ 60 ML/HR, TO BE D/C AT 2100 PER SURVEY SUPERVISOR NOTES. BED IN LOWEST LOCKED POSITION, ALL SAFETY MEASURES IN PLACE, CALL LIGHT WITHIN REACH. WILL GIVE REPORT TO ONCOMING RN FOR HAILEY.
--- NOTE | 2020-08-02 19:45 | NUR ---
MOLDER FLOOR NOTE, PATIENT IN BED, OBTUNDED AND NONVERBAL, ASLEEP AT THIS TIME, ON MECHANICAL VENTILATOR WITH TRACH, TOLERATED SETTINGS WELL, NO RESPIRATORY DISTRESS OR SOB NOTED AT THIS TIME, NSR ON TELE MONITOR WITH HR 80S ST THIS TIME, LEFT HAND #18 PIV PATENT AND INTACT, NO SIGNS OF INFECTION OR INFILTRATION F/C DRAINING YELLOW URINE, G-TUBE IN PLACED AND GLUCERNA 1.2 @ 60 ML/HR, BED LOCKED AND LOWEST POSITION, ALL SAFETY MEASURES IN PLACE, CALL LIGHT WITHIN REACH, WILL CONTINUE TO MONITOR CLOSELY.
[2020-08-02 20:00] VITALS: BP 106/52
[2020-08-02] MEDS: ATORVASTATIN 10 MG TABLET GT SCH (21:02)
[2020-08-02] MEDS: GLUCERNA 1.2 1,000 ML BOTTLE GT PRN (21:33)
[2020-08-03] VITALS: BP 124/48
[2020-08-03] MEDS: IPRATROPIUM NEB FS 0.5 MG/2.5 ML AMPUL.NEB NEB SCH ×6 (00:16→19:30)
[2020-08-03] MEDS: ALBUTEROL HALF STRENGTH 1.25 MG/3 ML VIAL.NEB NEB SCH ×6 (00:16→20:17)
[2020-08-03] MEDS: ACETYLCYSTEINE 20% SOLN 800 MG/4 ML VIAL NEB SCH ×3 (00:22→14:14)
[2020-08-03 04:00] VITALS: BP 109/50
[2020-08-03] MEDS: clonazePAM 0.5 MG TABLET GT SCH ×3 (04:36→22:01)
[2020-08-03] MEDS: ropiniROLE 0.5 MG TABLET GT SCH ×3 (04:36→22:02)
[2020-08-03] MEDS: MEROPENEM 1 G in IV NS 0.9% 100 ML IV SCH ×3 (04:37→22:01)
[2020-08-03] MEDS: hydrALAZINE HCL 50 MG TABLET GT SCH ×3 (04:44→22:02)
--- NOTE | 2020-08-03 06:53 | NUR ---
RIGGER HELPER NOTE, PATIENT IN BED, OBTUNDED AND NONVERBAL, ASLEEP AT THIS TIME, ON MECHANICAL VENTILATOR WITH TRACH, TOLERATED SETTINGS WELL, NO RESPIRATORY DISTRESS OR SOB NOTED THROUGHOUT THE NIGHT, CONTINUE NSR ON TELE MONITOR WITH HR 80-100S DURING NIGHT, NO SIGNIFICANT CHANGE IN CONDITION DURING THE NIGHT, BED LOCKED AND LOWEST POSITION, ALL SAFETY MEASURES IN PLACE, CALL LIGHT WITHIN REACH, WILL ENDORSE CONTINUITY OF CARE TO ONCOMING NURSE.
--- NOTE | 2020-08-03 07:15 | NUR ---
RN OPENING NOTE: Received patient in bed and obtunded. Patient with trach tube and on mechanical ventilation, tolerating settings well. No SOB and not in respiratory distress, saturation @ 99%. No pain noted on patient.Tele monitor showing sinus rhythm in the 90s. Larson catheter in place and draining yellow urine. IV sites clean, dry, patent and intact. Gtube patent and in place, feeding of Glucerna 1.2 @ 60mls/hr being tolerated well. Call light in reach. Bed locked, low and at semi-flores's position. Safety ensured and observed. Side rails up x3. Will continue to monitor.
[2020-08-03 08:00] VITALS: BP 126/63
[2020-08-03] MEDS: BLOOD SUGAR DIAGNOSTIC 1 EACH STRIP IN SCH ×3 (08:00→18:00)
[2020-08-03 08:30] LABS: THYROID STIMULATING HORMONE 6.727 uIU/mL (0.358-3.74)
[2020-08-03] MEDS: LamoTRIgine 25 MG TABLET GT SCH (08:44)
[2020-08-03] MEDS: PANTOPRAZOLE 40 MG/PACK PACK GT SCH ×2 (08:45→22:03)
[2020-08-03] MEDS: METOPROLOL TARTRATE 25 MG TABLET GT SCH ×2 (08:45→22:03)
[2020-08-03] MEDS: FOLIC ACID 1 MG TABLET PO SCH (08:45)
[2020-08-03] MEDS: ASPIRIN 81 MG TAB.CHEW GT SCH (08:45)
[2020-08-03] MEDS: AMLODIPINE BESYLATE 10 MG TABLET GT SCH (08:46)
[2020-08-03] MEDS: INSULIN REGULAR, HUMAN 100 UNIT/ML 3 ML VIAL SQ PRN (08:50)
[2020-08-03] MEDS: INSULIN GLARGINE, 100 UNIT/ML CARTRIDGE SQ SCH ×2 (08:51→22:47)
[2020-08-03] MEDS: DAKINS QUARTER STRENGTH (0.125%) 480 ML BOTTLE TOP SCH (10:00)
[2020-08-03] MEDS: Z GUARD REMEDY 2 OZ OINT TP SCH (10:00)
[2020-08-03 12:00] VITALS: BP 113/61
[2020-08-03] MEDS: GLUCERNA 1.2 1,000 ML BOTTLE GT PRN (14:51)
[2020-08-03] MEDS: SOD FERRIC GLUC 125 MG in IV NS 0.9% 100 ML IV SCH (15:20)
[2020-08-03 16:00] VITALS: BP 113/53
[2020-08-03] MEDS: DOCUSATE SODIUM LIQ 100 MG/10 ML UDC GT SCH (17:27)
[2020-08-03] MEDS ORDERED: DEXTROSE 50%-WATER 50 ML DISP.SYRIN IV PRN (18:00)
--- NOTE | 2020-08-03 19:18 | NUR ---
RN OPENING NOTES RECEIVED PT IN BED. RESTING. PT IS NON VERBAL. ABLE TO OPEN EYES, NO TRACKING. ON TELE MONITORING NSR CURRENTLY HR OF 85. PT IS TRACH TO VENT. VENT SETTINGS PORTEX 7 AC 12 TV 400 FIO2 30 AND PEEP 5. SATURATING AT 100% TOLERATING WELL. BREATHING IS EVEN AND UNLABORED. NO S/S OF RESP DISTRESS OR SOB AT THIS TIME. PT IS BB. PT HAS G TUBE, RESIDUALS CHECKED LESS THAN 5CC. G TUBE FLUSHED. AUSCULTATED TO CONFIRM PLACEMENT. ON GLUCERNA @ 60ML/HR TOLERATING WELL. IV SITE FLUSHED. BED IS LOCKED IN LOWEST POSITION WITH BED ALARM ON. CALL LIGHT WITHIN REACH. WILL CONTINUE TO MONITOR.
--- NOTE | 2020-08-03 19:47 | NUR ---
RN closing note: Patient remains in bed and obtunded. Patient with trach tube and on mechanical ventilation, tolerating settings well. No SOB and not in respiratory distress, saturation @ 99%. No pain noted on patient.Tele monitor showing sinus rhythm in the 90s. Larson catheter in place and draining yellow urine. IV sites clean, dry, patent and intact. Gtube patent and in place, feeding of Glucerna 1.2 @ 60mls/hr being tolerated well. Informed Dr. Sargent about patient's son (Jamee) wishes to be called about patient's condition. Call light in reach. Bed locked, low and at semi-flores's position. Safety ensured and observed. Side rails up x3. Due medications given. Treatment given as ordered. Endorsed to oncoming shift for HAILEY.
[2020-08-03 20:00] VITALS: BP 158/79
[2020-08-03] MEDS: ATORVASTATIN 10 MG TABLET GT SCH (22:05)
[2020-08-04] VITALS: BP 141/74
[2020-08-04] MEDS: ALBUTEROL HALF STRENGTH 1.25 MG/3 ML VIAL.NEB NEB SCH ×6 (00:16→20:10)
[2020-08-04] MEDS: IPRATROPIUM NEB FS 0.5 MG/2.5 ML AMPUL.NEB NEB SCH ×6 (00:16→20:10)
[2020-08-04] MEDS: ACETYLCYSTEINE 20% SOLN 800 MG/4 ML VIAL NEB SCH ×3 (00:17→14:53)
[2020-08-04] MEDS: BLOOD SUGAR DIAGNOSTIC 1 EACH STRIP IN SCH ×4 (00:43→18:12)
--- NOTE | 2020-08-04 01:22 | NUR ---
PT INTERMITTENTLY SLEEPING, O2 SAT 100. PT BREATHING IS EVEN AND UNLBAORED. NO S/S OF SOB OR RESP DISTRESS. NO S/S OF PAIN NOTED AT THIS TIME. WILL CONTINUE TO MONITOR.
[2020-08-04 04:00] VITALS: BP 153/73
[2020-08-04] MEDS: hydrALAZINE HCL 50 MG TABLET GT SCH ×3 (04:59→20:19)
[2020-08-04] MEDS: MEROPENEM 1 G in IV NS 0.9% 100 ML IV SCH ×3 (04:59→20:18)
[2020-08-04] MEDS: ropiniROLE 0.5 MG TABLET GT SCH ×3 (05:00→20:19)
[2020-08-04] MEDS: clonazePAM 0.5 MG TABLET GT SCH ×3 (05:00→20:19)
--- NOTE | 2020-08-04 05:32 | NUR ---
PERFORMED WOUND TREATMENTS ORDERED. WILL CONTINUE TO MONITOR.
--- NOTE | 2020-08-04 06:15 | NUR ---
FEEDING CHANGED, TUBING CHANGED. STILL TOLERATING WELL. WILL CONTINUE TO MONITOR.
[2020-08-04 06:27] LABS: BASOPHILS # (AUTO) 0.1 /CMM (0.0-0.2); BASOPHILS % (AUTO) 0.7 % (0.0-2.0); EOSINOPHILS % (AUTO) 3.9 % (0.0-6.0); HEMATOCRIT 24 % (33-45); HEMOGLOBIN 7.2 g/dL (11.5-14.8); LYMPHOCYTES % (AUTO) 12.6 % (20.0-44.0); MEAN CORPUSCULAR HGB CONC 30 g/dl (31.0-36.0); MEAN CORPUSCULAR VOLUME 79 fL (82-100); MONOCYTES # (AUTO) 0.5 /CMM (0.1-1.30); MONOCYTES % (AUTO) 6.4 % (2.0-12.0); NEUTROPHILS % (AUTO) 76.4 % (43.0-81.0); PLATELET COUNT (AUTO) 756 /CMM (150-450); RED BLOOD CELL COUNT(AUTO) 3.04 MIL/uL (4.0-5.2); WHITE BLOOD COUNT (AUTO) 7.8 K/uL (4.3-11.0)
[2020-08-04] MEDS: GLUCERNA 1.2 1,000 ML BOTTLE GT PRN (06:40)
[2020-08-04 07:08] LABS: CALCIUM, SERUM 8.8 mg/dL (8.5-10.1); CREATININE 1.4 mg/dL (0.6-1.3); MAGNESIUM 2.3 mg/dL (1.8-2.4); POTASSIUM 5.7 mmol/L (3.5-5.1)
--- NOTE | 2020-08-04 07:30 | NUR ---
ORACLE E BUSINESS DEVELOPER AM NOTES RECEIVED PT IN BED, OPENS EYES, WITH PORTEX 7 TRACH TO MECHANICAL VENT SETTING - AC 12 TV 400 FIO2 30% PEEP 5, BREATHING EVEN AND UNLABORED, NO SIGN AND SYMPTOMS OF DISTRESS, SINUS RHYTHM TO SINUS RHYTHM HR 89, NO SIGNS OF PAIN, PT HAVE LEFT HAND #18 IV,FLUSHES WELL, SITE CLEAR. PT HAVE GTUBE IN PLACE, CHECKED FOR PLACEMENT, O RESIDUAL, ONGOING TUBE FEEDING, GLUCERNA 1.2 AT 60 ML/HR X [address] CATH IN PLACE, DRAINING YELLOW COLORED URINE, CLEAR, ADEQUATE AMOUNT VIA GRAVITY, SEE NURSING FLOWSHEET FOR SKIN ISSUES. WILL TURN AND REPOSITION Q [address] MEASURES IN PL[address].BED LOW AND LOCKED, SR UP X2, WILL CONTINUE TO MONITOR.
--- NOTE | 2020-08-04 07:35 | NUR ---
RN CLOSING NOTES PT IS RESTING IN BED. UPON ROUNDS, PT DID NOT SLEEP CONTINUOUSLY THROUGHOUT THE NIGHT. NO SIGNIFICANT CHANGES NOTED. PT IS STILL TRACH TO VENT, SUCTION NEEDED. TOLERATING WELL. NO SIGNS OF SOB OR RESP DISTRESS NOTED AT THIS TIME. IV SITE PATENT. G TUBE FEEDING CHANGED. WOUND TX PERFORMED. BED IS LOCKED IN LOWEST POSITION WITH ALARM ON. CALL LIGHT WITHIN REACH. ENDORSED TO AM NURSE FOR CONTINUATION OF CARE.
[2020-08-04 07:38] LABS: BILIRUBIN,TOTAL 0.1 mg/dL (0.2-1.0)
[2020-08-04 07:49] LABS: ALBUMIN 1.4 g/dL (3.4-5.0)
--- NOTE | 2020-08-04 07:50 | NUR ---
RN NOTES CRITICAL RESULT ALBUMIN 1.[address] LYNN. NO NEW ORDERS
[2020-08-04 08:00] VITALS: BP 128/86
[2020-08-04 08:08] LABS: IMMUNOGLOBULIN A, SERUM 531 mg/dL (87-352); IMMUNOGLOBULIN G, SERUM 1392 mg/dL (586-1602); IMMUNOGLOBULIN M, SERUM 65 mg/dL (26-217)
--- NOTE | 2020-08-04 09:30 | NUR ---
RN NOTES DUE MEDS GIVEN WATER FLUSH OF 100 ML PRE AND POST MEDS ADMINISTRATION
[2020-08-04] MEDS: FOLIC ACID 1 MG TABLET PO SCH (09:53)
[2020-08-04] MEDS: AMLODIPINE BESYLATE 10 MG TABLET GT SCH (09:53)
[2020-08-04] MEDS: LamoTRIgine 25 MG TABLET GT SCH (09:53)
[2020-08-04] MEDS: ASPIRIN 81 MG TAB.CHEW GT SCH (09:53)
[2020-08-04] MEDS: METOPROLOL TARTRATE 25 MG TABLET GT SCH ×2 (09:53→20:19)
[2020-08-04] MEDS: DAKINS QUARTER STRENGTH (0.125%) 480 ML BOTTLE TOP SCH (09:54)
[2020-08-04] MEDS: PANTOPRAZOLE 40 MG/PACK PACK GT SCH ×2 (09:54→20:18)
[2020-08-04] MEDS: Z GUARD REMEDY 2 OZ OINT TP SCH (09:54)
[2020-08-04] MEDS: INSULIN GLARGINE, 100 UNIT/ML CARTRIDGE SQ SCH ×2 (09:56→20:22)
[2020-08-04 12:00] VITALS: BP 121/60
[2020-08-04 12:06] LABS: *SPE A/G RATIO 0.4 (0.7-1.7); *SPE ALBUMIN 1.7 g/dL (2.9-4.4); *SPE ALPHA-1-GLOBULIN 0.5 g/dL (0.0-0.4); *SPE ALPHA-2-GLOBULIN 1.1 g/dL (0.4-1.0); *SPE BETA GLOBULIN 1.1 g/dL (0.7-1.3); *SPE GLOBULIN, TOTAL 4.1 g/dL (2.2-3.9); *SPE M-SPIKE Not Observed g/dL (Not Observed); *SPEGAMMA GLOBULIN 1.4 g/dL (0.4-1.8)
[2020-08-04 16:00] VITALS: BP 120/86
[2020-08-04] MEDS: DOCUSATE SODIUM LIQ 100 MG/10 ML UDC GT SCH (18:03)
[2020-08-04] MEDS: INSULIN REGULAR, HUMAN 100 UNIT/ML 3 ML VIAL SQ PRN (18:22)
--- NOTE | 2020-08-04 19:05 | NUR ---
RN NOTES\ RECEIVED PT ON BED AWAKE, OPEN EYES, STILL ON TRACH/VENT SETTING ORDERED NO SIGN AND SYMPTOMS OF RESPIRATORY DISTRESS OR PAIN NOTED, TELE MONITOR READS SINUS TACHY ON 110'S, GTUBE ON PLACE PATENT, PLACEMENT CHECJED, RESIDUAL 10ML WITH ONGOING GLUCERNA @ 60ML/HR TOLERATING WELL, SAFETY MEASURE MAINTAINED SIDE RAILS UP X3, BED ON LOWEST POSITION AND LOCKED WILL CONT TO MONITOR
--- NOTE | 2020-08-04 19:08 | NUR ---
FURNITURE RESTORER CLOSING NOTES PT IN BED, RESTING COMFORTABLY. OPENS EYES, WITH PORTEX 7 TRACH TO MECHANICAL VENT SETTING - AC 12 TV 400 FIO2 30% PEEP 5, BREATHING EVEN AND UNLABORED, NO SIGN AND SYMPTOMS OF DISTRESS, SINUS RHYTHM TO TACHY ON MONITOR HR 80s TO 100s, NO SIGNS OF PAIN, PT HAVE LEFT HAND #18 IV, MIDLINE ON ADRIAN G18. FLUSHES WELL, SITE CLEAR. PT HAVE GTUBE IN PLACE, 15 ML RESIDUAL, ONGOING TUBE FEEDING, GLUCERNA 1.2 AT 60 ML/HR X [address], DRAINING YELLOW COLORED URINE, CLEAR, ADEQUATE AMOUNT VIA GRAVITY, TOTAL 1000ML OUTPUT. TURNED AND REPOSITIONED Q [address] ME[address] PL[address].BED LOW AND LOCKED, SR UP X2, PM CARE AND PRESCRIBED WOUND TREATMENT DONE EARLIER. ALL NEEDS MET. WILL ENDORSE TO NEXT SHIFT FOR HAILEY.
[2020-08-04 20:09] VITALS: BP 113/46
[2020-08-04] MEDS: ATORVASTATIN 10 MG TABLET GT SCH (21:35)
--- NOTE | 2020-08-04 22:37 | NUR ---
REPORT GIVEN TO ELIZA LINCOLN FOR HAILEY
--- NOTE | 2020-08-04 22:40 | NUR ---
RN NOTE RECEIVED PT IN BED. PT ON TRACH AND VENT TOLERATING CURRENT VENT SETTINGS. NO SIGNS OF SOB OR RESP DISTRESS NOTED AT THIS TIME. IV SITE PATENT. G TUBE FEEDING RUNNING AT 60 CC/HR. BED IS LOCKED IN LOWEST POSITION WITH ALARM ON. CALL LIGHT WITHIN REACH. WILL CONTINUE TO MONITOR PT.
[2020-08-05] VITALS (8 sets, daily range): BP systolic 119–152; BP diastolic 43–81
[2020-08-05] MEDS: ALBUTEROL HALF STRENGTH 1.25 MG/3 ML VIAL.NEB NEB SCH ×7 (00:01→23:58)
[2020-08-05] MEDS: ACETYLCYSTEINE 20% SOLN 800 MG/4 ML VIAL NEB SCH ×4 (00:01→23:59)
[2020-08-05] MEDS: IPRATROPIUM NEB FS 0.5 MG/2.5 ML AMPUL.NEB NEB SCH ×7 (00:01→23:58)
[2020-08-05] MEDS: BLOOD SUGAR DIAGNOSTIC 1 EACH STRIP IN SCH ×5 (00:20→23:32)
[2020-08-05] MEDS: INSULIN REGULAR, HUMAN 100 UNIT/ML 3 ML VIAL SQ PRN ×3 (00:21→23:32)
[2020-08-05] MEDS: GLUCERNA 1.2 1,000 ML BOTTLE GT PRN ×2 (01:05→18:43)
[2020-08-05] MEDS: ropiniROLE 0.5 MG TABLET GT SCH ×3 (04:14→20:20)
[2020-08-05] MEDS: clonazePAM 0.5 MG TABLET GT SCH ×3 (04:14→20:20)
[2020-08-05] MEDS: hydrALAZINE HCL 50 MG TABLET GT SCH ×3 (04:15→20:20)
[2020-08-05] MEDS: MEROPENEM 1 G in IV NS 0.9% 100 ML IV SCH ×3 (04:18→20:20)
--- NOTE | 2020-08-05 07:02 | NUR ---
RN NOT PT REMAINED STABLE, NO SIGNS OF SOB OR RESP DISTRESS DURING SHIFT. IV SITES PATENT INTACT AND FLUSHING WELL. G TUBE FEEDING RUNNING AT 60 CC/HR. TONEY CATH DRAINING URINE. WOUND CARE COMPLETED. BED IS LOCKED IN LOWEST POSITION. CALL LIGHT WITHIN REACH. ENDORSED TO AM RN FOR [place].
--- NOTE | 2020-08-05 07:30 | NUR ---
SCHEME TECHNICIAN OPENING NOTES PT REMAINS OBTUNDED. OPENS EYES, ON MECHANICAL VENT WITH GOOD TOLERANCE. NOT IN ANY ACUTE DISTRESS SINUS RHYTHM TO SINUS RHYTHM HR 80S, NO SIGNS OF PAIN, PT HAVE LEFT HAND #18 IV INTACT AND FLUSHED WELL. PT HAVE GTUBE IN PLACE, CHECKED FOR PLACEMENT, O RESIDUAL, ONGOING TUBE FEEDING, GLUCERNA 1.2 AT 60 ML/HR X [address], DRAINING YELLOW COLORED URINE, CLEAR, ADEQUATE AMOUNT VIA GRAVITY, SEE NURSING FLOWSHEET FOR SKIN ISSUES. WILL TURN AND REPOSITION Q [address] HOURS[address] SAFETY MEASURES IN PLACE.BED LOW AND LOCKED, SR UP X2, WILL CONTINUE TO MONITOR.
[2020-08-05] MEDS: DAKINS QUARTER STRENGTH (0.125%) 480 ML BOTTLE TOP SCH (09:56)
[2020-08-05] MEDS: Z GUARD REMEDY 2 OZ OINT TP SCH (09:57)
[2020-08-05] MEDS: FOLIC ACID 1 MG TABLET PO SCH (10:00)
[2020-08-05] MEDS: LamoTRIgine 25 MG TABLET GT SCH (10:00)
[2020-08-05] MEDS: METOPROLOL TARTRATE 25 MG TABLET GT SCH ×2 (10:00→20:21)
[2020-08-05] MEDS: AMLODIPINE BESYLATE 10 MG TABLET GT SCH (10:00)
[2020-08-05] MEDS: PANTOPRAZOLE 40 MG/PACK PACK GT SCH ×2 (10:01→20:21)
[2020-08-05] MEDS: ASPIRIN 81 MG TAB.CHEW GT SCH (10:01)
[2020-08-05] MEDS: INSULIN GLARGINE, 100 UNIT/ML CARTRIDGE SQ SCH ×2 (10:04→20:22)
[2020-08-05 10:34] LABS: BASOPHILS # (AUTO) 0.1 /CMM (0.0-0.2); BASOPHILS % (AUTO) 0.5 % (0.0-2.0); HEMATOCRIT 24 % (33-45); HEMOGLOBIN 7.2 g/dL (11.5-14.8); LYMPHOCYTES # (AUTO) 1.6 /CMM (0.8-4.8); LYMPHOCYTES % (AUTO) 16.7 % (20.0-44.0); MEAN CORPUSCULAR HGB CONC 30 g/dl (31.0-36.0); MEAN CORPUSCULAR VOLUME 80 fL (82-100); MONOCYTES # (AUTO) 0.5 /CMM (0.1-1.30); MONOCYTES % (AUTO) 5.7 % (2.0-12.0); NEUTROPHILS % (AUTO) 75.1 % (43.0-81.0); PLATELET COUNT (AUTO) 649 /CMM (150-450); RED BLOOD CELL COUNT(AUTO) 2.98 MIL/uL (4.0-5.2); WHITE BLOOD COUNT (AUTO) 9.3 K/uL (4.3-11.0)
[2020-08-05 10:54] LABS: BILIRUBIN,TOTAL 0.1 mg/dL (0.2-1.0); CALCIUM, SERUM 8.8 mg/dL (8.5-10.1); CREATININE 1.5 mg/dL (0.6-1.3); MAGNESIUM 2.4 mg/dL (1.8-2.4); PHOSPHORUS 3.7 mg/dL (2.5-4.9)
[2020-08-05 11:00] LABS: ALBUMIN 1.3 g/dL (3.4-5.0); POTASSIUM 6.7 mmol/L (3.5-5.1)
--- NOTE | 2020-08-05 11:10 | NUR ---
dr. rocha made aware patient k is 6.7 per md he will look at it.
[2020-08-05] MEDS ORDERED: SODIUM POLYSTYRENE SULFONATE 15 G/60 ML BOTTLE PO ONE ×3 (11:30→22:30)
[2020-08-05] MEDS ORDERED: FUROSEMIDE 20 MG/2 ML VIAL IV ONE (11:30)
[2020-08-05 11:56] LABS: TOTAL PROTEIN, SERUM 6.8 g/dL (6.4-8.2)
--- NOTE | 2020-08-05 13:20 | NUR ---
LASIX 40MG AND KAYEXALATE 60G GIVEN ORDERED.
[2020-08-05] MEDS ORDERED: SODIUM POLYSTYRENE SULFONATE 15 G/60 ML BOTTLE ONE ×3 (13:25→18:12)
[2020-08-05 15:07] LABS: CALCIUM, SERUM 9.2 mg/dL (8.5-10.1); CREATININE 1.6 mg/dL (0.6-1.3)
[2020-08-05 15:16] LABS: POTASSIUM 6.9 mmol/L (3.5-5.1)
--- NOTE | 2020-08-05 15:25 | NUR ---
PT NOTED TO HAVE LARGE BM. CLEANED AND DRY WITH GOOD TOLERANCE.
--- NOTE | 2020-08-05 17:30 | NUR ---
MD MADE AWARE OF LATEST POTASSIUM LEVEL OF 6.6, AWAITING FOR ORDERS.
[2020-08-05] MEDS: DOCUSATE SODIUM LIQ 100 MG/10 ML UDC GT SCH (17:33)
--- NOTE | 2020-08-05 17:39 | NUR ---
ADDENDUM K OF 6.[address] LYNN W/ ORDER TO REPEAT TEST AND REPEATED RESULT IS 6.6 NOTIFIED WITH RESULTS.
--- NOTE | 2020-08-05 17:56 | NUR ---
OBTAINED ORDERS FOR ANOTHER DOSE OF KAYAXELATE PRIMARY MD MADE AWARE.
--- NOTE | 2020-08-05 18:15 | NUR ---
KAYEXALATE 30G GIVEN VIA GT ORDERED.
--- NOTE | 2020-08-05 18:30 | NUR ---
PT HAD LARGE BM. KEPT CLEANED AND DRY. WILL ENDORSE TO NEXT SHIFT.
--- NOTE | 2020-08-05 18:53 | NUR ---
LIVESTOCK SHOWMAN CLOSING NOTES PT REMAINS OBTUNDED IN BED, NO SIGNIFICANT CHANGES NOTED DURING THE SHIFT. PT REMAINS ON MECHANICAL VENT WITH GOOD TOLERANCE. NO SIGNS OF SOB OR RESP DISTRESS NOTED AT THIS TIME. IV SITE PATENT. GTF INTACT AND INFUSING WELL. WOUND TX PERFORMED. BED IS LOCKED IN LOWEST POSITION WITH ALARM ON. CALL LIGHT WITHIN REACH. WILL ENDORSE TO NEXT SHIFT FOR HAILEY
--- NOTE | 2020-08-05 19:15 | NUR ---
RN NOTES RECEIVED PT ON BED AWAKE, OPEN EYES, STILL ON TRACH/VENT SETTING ORDERED NO SIGN AND SYMPTOMS OF RESPIRATORY DISTRESS OR PAIN NOTED, TELE MONITOR READS SINUS RHYTHM 90'S, GTUBE ON PLACE PATENT, PLACEMENT CHECKED, RESIDUAL 0 ML WITH ONGOING GLUCERNA @ 60ML/HR TOLERATING WELL, SAFETY MEASURE MAINTAINED SIDE RAILS UP X3, BED ON LOWEST POSITION AND LOCKED WILL CONT TO MONITOR
[2020-08-05] MEDS: ATORVASTATIN 10 MG TABLET GT SCH (21:33)
[2020-08-05] MEDS ORDERED: BUMETANIDE INJ 4 MG in IV D5W 24 ML IV ONE (22:30)
[2020-08-05] MEDS: METOLAZONE 2.5 MG TABLET PO SCH (22:44)
[2020-08-05] MEDS ORDERED: BUMETANIDE INJ 0.25 MG/ML VIAL ONE (22:45)
--- NOTE | 2020-08-05 23:33 | NUR ---
RN NOTES BLOOD SUGAR 120, NO COVERAGE FOR INSULIN PER SLIDING SCALE WILL CONT TO MONITOR THE PT
[2020-08-06] VITALS (8 sets, daily range): BP systolic 118–159; BP diastolic 55–88
[2020-08-06 01:08] LABS: CHLORIDE,URINE RANDOM 105 mmol/L (55-125); POTASSIUM RNDM,URINE 11 mmol/L (25-125); URINE SODIUM, RANDOM 129 mmol/l (40-220)
[2020-08-06 01:08] LABS: HAPTOGLOBIN 302 mg/dL (37-355)
[2020-08-06 01:12] LABS: OSMOLALITY,URINE 352 mOS/kg (340-1090)
[2020-08-06] MEDS: ALBUTEROL HALF STRENGTH 1.25 MG/3 ML VIAL.NEB NEB SCH ×6 (03:43→23:30)
[2020-08-06] MEDS: IPRATROPIUM NEB FS 0.5 MG/2.5 ML AMPUL.NEB NEB SCH ×6 (03:44→23:30)
[2020-08-06] MEDS: MEROPENEM 1 G in IV NS 0.9% 100 ML IV SCH ×2 (04:14→13:15)
[2020-08-06] MEDS: ropiniROLE 0.5 MG TABLET GT SCH ×3 (04:14→20:49)
[2020-08-06] MEDS: clonazePAM 0.5 MG TABLET GT SCH ×3 (04:14→20:23)
[2020-08-06] MEDS: hydrALAZINE HCL 50 MG TABLET GT SCH ×3 (04:16→20:24)
[2020-08-06] MEDS: BLOOD SUGAR DIAGNOSTIC 1 EACH STRIP IN SCH ×4 (06:15→23:21)
[2020-08-06] MEDS: INSULIN REGULAR, HUMAN 100 UNIT/ML 3 ML VIAL SQ PRN ×3 (06:16→23:23)
[2020-08-06 06:51] LABS: BASOPHILS # (AUTO) 0.1 /CMM (0.0-0.2); BASOPHILS % (AUTO) 0.7 % (0.0-2.0); EOSINOPHILS % (AUTO) 2.9 % (0.0-6.0); HEMATOCRIT 26 % (33-45); HEMOGLOBIN 7.8 g/dL (11.5-14.8); LYMPHOCYTES % (AUTO) 12.1 % (20.0-44.0); MEAN CORPUSCULAR HGB CONC 30 g/dl (31.0-36.0); MEAN CORPUSCULAR VOLUME 81 fL (82-100); MONOCYTES # (AUTO) 0.6 /CMM (0.1-1.30); MONOCYTES % (AUTO) 7.2 % (2.0-12.0); NEUTROPHILS # (AUTO) 6.3 /CMM (1.8-8.9); NEUTROPHILS % (AUTO) 77.1 % (43.0-81.0); PLATELET COUNT (AUTO) 709 /CMM (150-450); WHITE BLOOD COUNT (AUTO) 8.2 K/uL (4.3-11.0)
[2020-08-06] MEDS: ACETYLCYSTEINE 20% SOLN 800 MG/4 ML VIAL NEB SCH ×3 (07:22→23:30)
[2020-08-06 07:23] LABS: CALCIUM, SERUM 9.2 mg/dL (8.5-10.1); CREATININE 1.6 mg/dL (0.6-1.3); POTASSIUM 5.9 mmol/L (3.5-5.1)
--- NOTE | 2020-08-06 07:28 | NUR ---
PT ON BED ASLEEP STILL ON VENT SETTTING ORDERED NO SIGNIFICANT CHANGES ON CONDITION NOTED ALL NEEDS ATTENDED WOUND TREATMENT DONE BED ON LOWEST POSITION AND LOCKED SIDE RAILS UP X2 CALL LIGHT WITHIN REACH WILL ENDORSE TO AM SHIFT NURSE
--- NOTE | 2020-08-06 08:00 | NUR ---
SETTLEMENT PROCESSOR NOTE PATIENT IN BED, OBTUNDED WITH TRACH TO VENT SETTING ORDERED, ON TELE MONITOR. SINUS TACHY 109-110. PT ON GTUBE FEEDING. NO RESIDUAL NOTED. KEEP HOB ELEVATED. LEFT HAND HL INTACT AND FLUSHING WELL. BED LOCKED AND IN LOWEST POSITION. TRACH CARE DONE. SAFETY MEASURES OBSERVED. WILL CONTINUE TO MONITOR.
[2020-08-06] MEDS: ASPIRIN 81 MG TAB.CHEW GT SCH (08:51)
[2020-08-06] MEDS: PANTOPRAZOLE 40 MG/PACK PACK GT SCH ×2 (08:51→20:24)
[2020-08-06] MEDS: METOLAZONE 2.5 MG TABLET PO SCH (08:51)
[2020-08-06] MEDS: LamoTRIgine 25 MG TABLET GT SCH (08:52)
[2020-08-06] MEDS: AMLODIPINE BESYLATE 10 MG TABLET GT SCH (08:52)
[2020-08-06] MEDS: FOLIC ACID 1 MG TABLET PO SCH (08:52)
[2020-08-06] MEDS: INSULIN GLARGINE, 100 UNIT/ML CARTRIDGE SQ SCH ×2 (08:55→20:13)
[2020-08-06] MEDS: DAKINS QUARTER STRENGTH (0.125%) 480 ML BOTTLE TOP SCH (08:56)
[2020-08-06] MEDS: Z GUARD REMEDY 2 OZ OINT TP SCH (08:56)
[2020-08-06] MEDS: METOPROLOL TARTRATE 25 MG TABLET GT SCH ×2 (09:52→20:24)
--- NOTE | 2020-08-06 10:12 | NUR ---
COLLECTION MANAGER NOTES CALLED DR. LYNN, LEFT MESSAGE OF POTASSIUM LVL 5.9. WAITING FOR NEW ORDERS.
--- NOTE | 2020-08-06 10:18 | NUR ---
FOOD SERVICE KITCHEN SUPERVISOR NOTES DR. LYNN NOTIFIED OF POTASSIUM LEVEL OF 5.9. STATED WILL GIVE NEW ORDERS. WILL FOLLOW UP.
[2020-08-06] MEDS ORDERED: SODIUM POLYSTYRENE SULFONATE 15 G/60 ML BOTTLE PO ONE ×2 (10:30→12:30)
[2020-08-06] MEDS ORDERED: FUROSEMIDE 40 MG TABLET GT ONE (13:00)
[2020-08-06] MEDS: GLUCERNA 1.2 1,000 ML BOTTLE NG PRN (13:56)
[2020-08-06] MEDS: IV D5W 1,000 ML IV PRN (14:15)
--- NOTE | 2020-08-06 14:35 | NUR ---
CLAIMS ADJUDICATOR NOTES CLARIFIED KAYEXALATE [address] GOZNALES AT THIS TIME WITH ORDER TO HOLD KAYEXALATE ORDER. NOTED AND CARRIED OUT.
--- NOTE | 2020-08-06 16:48 | NUR ---
telephone lines repairer note charge nurse taken for covid test as ordered pcr
--- NOTE | 2020-08-06 16:54 | NUR ---
SURVEILLANCE TECHNICIAN NOTES ROUNDS DONE. PATIENT MADE LARGE BM. KEPT CLEAN AND DRY. ALL NEEDS ATTENDED. WILL CONTINUE TO MONITOR.
[2020-08-06] MEDS: DOCUSATE SODIUM LIQ 100 MG/10 ML UDC GT SCH (18:00)
--- NOTE | 2020-08-06 18:00 | NUR ---
MOBILE HEAVY EQUIPMENT MECHANIC REPORT RECIVED FROM NADYA NURSE
--- NOTE | 2020-08-06 18:15 | NUR ---
ION IMPLANT MACHINE OPERATOR NOTES JEREMY LINCOLN FROM [facility] AT BEDSIDE. RT AT BEDSIDE. TRANSFER PATIENT TO ICU FOR PCR PENDING. REPORT GIVEN TO JEREMY.
--- NOTE | 2020-08-06 18:33 | NUR ---
AUTO AIR CONDITIONING APPRENTICE - PATIENT IN ICU FOR OBSERVATION FOR PCR ORDERS. IN ROOM 250 PATIENT OBTUNDED. PATIENT OPENS EYES. BUT DOES NOT RESPOND .PATIENT ON FUSION JUNCTURE GRINDER ST 100'S . PATIENT BP 151/64 VITALS STABLE AT THIS TIME. NO SIGNS OF ACUTE RESPIRATORY DISTRESS. NO SOB. PATIENT IN NADYA BUMEX GIVEN TO PATIENT WITH OUTPUT OF 1600 CC. PATIENT HAS SCRAL DTI. DERIMENT 08/03. BUTTOCKS TEAR. GLUCERNA @ 60ML/ HR. L HAND 18 NO SIGNS OF INFILTRATION.LINE INTACT AND PATIENT WITH TKO RUNNING . ADRIAN MIDLINE WITH D5W @ 50 ML.HR . BED LOCKED LOWEST POSITION CALL LIGHT WITH IN REACH ALL SAFETY MEASURES IMPLEMENTED PER HOSPITAL POLICY
--- NOTE | 2020-08-06 18:54 | NUR ---
CLIENT SERVICE COORDINATOR - CALLED PHARMACY TO CONFIRM VANCOMYCIN - THEY WILL SEND IT SOON POSSIBLE
--- NOTE | 2020-08-06 19:20 | NUR ---
RN NOTE RECEIVED PATIENT IN BED IN SEMI DURAN'S POSITION. OBTUNDED BUT ABLE TO OPEN EYES. PATIENT ON PRINCIPAL ENGINEER 100S. VITAL SIGNS STABLE VIA BEDSIDE MONITOR. PATIENT WITH TRACH AND ON MECHANICAL VENT WHILE TOLERATING SETTINGS WELL. TRACH MIDLINE AND IN PLACE. TONEY CATHETER PATENT AND IN PLACE DRAINING CLEAR YELLOW URINE. GT PATENT AND FLUSHED WITH NO GASTRIC RESIDUAL. ALL LINES PATENT AND FLUSHED WITHOUT COMPLICATIONS AT SITE. WITH IV FLUIDS RUNNING ORDERED. CALL LIGHT WITHIN REACH, SAFETY MEASURES IN PLACE, WILL MONITOR PATIENT.
[2020-08-06] MEDS: VANCOMYCIN 1 GM in IV D5W 250 ML IV SCH (19:23)
--- NOTE | 2020-08-06 19:49 | NUR ---
RT NOTE TX NOT GIVEN DUE TO CDC GUIDELINES OF PENDING COVID RESULTS. NO DISTRESS NOTED AT THIS TIME. WILL CONTINUE TO MONITOR T/O SHIFT.
[2020-08-06] MEDS: CEFTAZIDIME 2 G in IV D5W 100 ML IV SCH (20:23)
[2020-08-06] MEDS ORDERED: CEFTAZIDIME 2 G in IV D5W 50 ML IV SCH (21:00)
[2020-08-06] MEDS: ATORVASTATIN 10 MG TABLET GT SCH (21:07)
--- NOTE | 2020-08-06 21:21 | NUR ---
RT NOTE PT RECEIVED TRACHED ON MECHANICAL VENTILATION. PORTEX [address] CUFF INFLATED. SX DONE, TRACH SECURED AND PATENT. ALARMS ON AND AUDIBLE. NO RESP. DISTRESS NOTED AT THIS TIME. WILL CONTINUE TO MONITOR T/O SHIFT. Addendum: 08/06/20 at 2123 by EUGENE LUA RT Amended: Links added.
[2020-08-07] VITALS: BP 142/72
--- NOTE | 2020-08-07 02:00 | NUR ---
RN NOTE BED BATH AND AM CARE COMPLETED. TOLERATED WELL. VITAL SIGNS STABLE VIA MONITOR. NO SIGNS OF PAIN OR DISCOMFORT. TUBE FEEDING RESUMED WITHOUT RESIDUAL NOTED. WILL CONTINUE TO MONITOR PATIENT.
[2020-08-07] MEDS: IPRATROPIUM NEB FS 0.5 MG/2.5 ML AMPUL.NEB NEB SCH ×6 (03:30→23:24)
[2020-08-07] MEDS: ALBUTEROL HALF STRENGTH 1.25 MG/3 ML VIAL.NEB NEB SCH ×6 (03:30→23:24)
[2020-08-07 04:00] VITALS: BP 138/75
[2020-08-07 04:28] LABS: BASOPHILS # (AUTO) 0.1 /CMM (0.0-0.2); BASOPHILS % (AUTO) 0.7 % (0.0-2.0); HEMATOCRIT 24 % (33-45); HEMOGLOBIN 7.3 g/dL (11.5-14.8); LYMPHOCYTES # (AUTO) 1.2 /CMM (0.8-4.8); LYMPHOCYTES % (AUTO) 15.2 % (20.0-44.0); MEAN CORPUSCULAR HGB CONC 30 g/dl (31.0-36.0); MEAN CORPUSCULAR VOLUME 80 fL (82-100); MONOCYTES # (AUTO) 0.6 /CMM (0.1-1.30); MONOCYTES % (AUTO) 7.2 % (2.0-12.0); NEUTROPHILS # (AUTO) 5.7 /CMM (1.8-8.9); NEUTROPHILS % (AUTO) 72.9 % (43.0-81.0); PLATELET COUNT (AUTO) 698 /CMM (150-450); RED BLOOD CELL COUNT(AUTO) 3.01 MIL/uL (4.0-5.2); WHITE BLOOD COUNT (AUTO) 7.8 K/uL (4.3-11.0)
[2020-08-07 04:44] LABS: ALBUMIN 1.5 g/dL (3.4-5.0); BILIRUBIN,TOTAL 0.2 mg/dL (0.2-1.0); CREATININE 1.6 mg/dL (0.6-1.3); PHOSPHORUS 3.9 mg/dL (2.5-4.9); POTASSIUM 5.7 mmol/L (3.5-5.1); TOTAL PROTEIN, SERUM 7.1 g/dL (6.4-8.2)
[2020-08-07 05:00] LABS: PLATELET COUNT (AUTO) 698 /CMM (150-450)
[2020-08-07 05:01] LABS: D-DIMER 2.86 mg/L(FEU (0.17-0.50)
[2020-08-07] MEDS: BLOOD SUGAR DIAGNOSTIC 1 EACH STRIP IN SCH ×3 (05:07→18:01)
[2020-08-07] MEDS: hydrALAZINE HCL 50 MG TABLET GT SCH ×3 (05:13→20:28)
[2020-08-07] MEDS: ropiniROLE 0.5 MG TABLET GT SCH ×3 (05:13→20:28)
[2020-08-07] MEDS: clonazePAM 0.5 MG TABLET GT SCH ×3 (05:13→20:28)
[2020-08-07] MEDS: MORPHINE SULFATE INJ 2 MG/ML DISP.SYRIN IV PRN (06:45)
--- NOTE | 2020-08-07 07:06 | NUR ---
RN NOTE PATIENT IN BED IN SEMI DURAN'S POSITION. OBTUNDED BUT ABLE TO OPEN EYES. PATIENT ON SUPERVISOR TANK STORAGE SINUS TACHY. PATIENT WITH TRACH AND ON MECHANICAL VENT WHILE TOLERATING SETTINGS WELL. TRACH MIDLINE AND IN PLACE. TONEY CATHETER PATENT AND IN PLACE DRAINING URINE. GT PATENT AND FLUSHED WITH NO GASTRIC RESIDUAL. TUBE FEEDING RUNNING ORDERED AND TOLERATING WELL. ALL LINES PATENT AND FLUSHED WITHOUT COMPLICATIONS AT SITE. WITH IV FLUIDS RUNNING ORDERED. PENDING PCR STATUS. CALL LIGHT WITHIN REACH, SAFETY MEASURES IN PLACE, ENDORSED TO MORNING RN FOR CONTINUATION OF CARE.
--- NOTE | 2020-08-07 07:20 | NUR ---
RN OPENING NOTE RECEIVED PATIENT IN BED, A/OX1, O MECH SHERRILL, WITH SETTINGS AC12, TV400, FIO30%, PEEP 5, TOLERATING WELL, NO S/SX OF RESP DISTRESS NOTED, RELAXED AND CALM, OPEN EYES TO NAME AND VOICE, SR/ST ON TELEMONITOR, TONEY CATH IN PLACE DRAINING YELLOW CLEAR URINE BY GRAVITY, PATENT AND INTACT, G-TUBE NOTED IN PLACE, NO RESIDUAL NOTED, FLUSHING WELL, RUNNING GLUCERNA @ 60 CC/HR, TOLERATING WELL, ACTIVE BOWEL SOUNDS IN 4 QUADRANTS NOTED, IV LINES NOTED ON L HAND G20 AND ADRIAN MIDLINE G18, INTACT, PATENT.LAB RESULTS NOTED. BED IN LOWEST POSITION, CALL LIGHT IN REACH, HOB ELEVATED, MONITORS WORKING, WILL CONT TO MONITOR
[2020-08-07] MEDS: ACETYLCYSTEINE 20% SOLN 800 MG/4 ML VIAL NEB SCH ×3 (07:35→23:24)
[2020-08-07 08:00] VITALS: BP 137/74
--- NOTE | 2020-08-07 08:17 | NUR ---
GAVE REPORT TO LJ LINCOLN, PATIENT WILL GO TO ROOM 207
[2020-08-07] MEDS: AMLODIPINE BESYLATE 10 MG TABLET GT SCH (08:27)
[2020-08-07] MEDS: FOLIC ACID 1 MG TABLET PO SCH (08:27)
[2020-08-07] MEDS: METOLAZONE 2.5 MG TABLET PO SCH (08:27)
[2020-08-07] MEDS: PANTOPRAZOLE 40 MG/PACK PACK GT SCH ×2 (08:27→20:28)
[2020-08-07] MEDS: LamoTRIgine 25 MG TABLET GT SCH (08:27)
[2020-08-07] MEDS: METOPROLOL TARTRATE 25 MG TABLET GT SCH ×2 (08:27→20:28)
[2020-08-07] MEDS: CEFTAZIDIME 2 G in IV D5W 100 ML IV SCH ×2 (08:33→21:16)
[2020-08-07] MEDS: ASPIRIN 81 MG TAB.CHEW GT SCH (08:34)
[2020-08-07] MEDS: INSULIN GLARGINE, 100 UNIT/ML CARTRIDGE SQ SCH ×2 (08:53→21:29)
--- NOTE | 2020-08-07 09:40 | NUR ---
Transferred patient to room 207, report given to RN
--- NOTE | 2020-08-07 09:45 | NUR ---
MS/RN RECEIVING NOTES RECEIVED TRANSFER FROM ICU IN MEDICALLY STABLE CONDITION AT THIS TIME. PATIENT IS ON VENT SATURATING WELL AT 100%. PATIENT HAS A TONEY; DRAINING CLEAR YELLOW URINE. G-TUBE PRESENT WELL. PATIENT IS OBTUNDED. SAFETY PRECAUTIONS IN PLACE; BED IN LOW POSITION AND LOCKED, RAILS UP X2, CALL LIGHT WITHIN REACH. WILL CONTINUE TO MONITOR PATIENT.
[2020-08-07] MEDS: DAKINS QUARTER STRENGTH (0.125%) 480 ML BOTTLE TOP SCH (09:55)
[2020-08-07] MEDS: Z GUARD REMEDY 2 OZ OINT TP SCH (09:55)
--- NOTE | 2020-08-07 10:02 | NUR ---
MS RN NOTES LAB JUST CALLED WITH A COVID-19 RESULT FOR THE PATIENT. PATIENT IS COVID-19 NEGATIVE. NURSING SUP NOTIFIED.
--- NOTE | 2020-08-07 10:09 | NUR ---
MS RN NOTES CALLED [facility] FOR A FEEDING PUMP AND REGULAR IV FLUIDS PUMP.
[2020-08-07] MEDS ORDERED: SODIUM POLYSTYRENE SULFONATE 15 G/60 ML BOTTLE PO ONE (10:30)
--- NOTE | 2020-08-07 11:15 | NUR ---
MS RN NOTES PER DR LEAH PEREZ TO TRANSFER TO [facility]
[2020-08-07 12:00] VITALS: BP 128/71
[2020-08-07] MEDS: GLUCERNA 1.2 1,000 ML BOTTLE NG PRN (12:04)
[2020-08-07] MEDS ORDERED: VANC1PLA2 IV (12:59)
[2020-08-07] MEDS ORDERED: CEFT2VIA6 IJ (12:59)
[2020-08-07 16:00] VITALS: BP 110/73
[2020-08-07] MEDS: DOCUSATE SODIUM LIQ 100 MG/10 ML UDC GT SCH (17:51)
[2020-08-07] MEDS: IV D5W 1,000 ML IV PRN (18:37)
[2020-08-07] MEDS: VANCOMYCIN 1 GM in IV D5W 250 ML IV SCH (18:44)
--- NOTE | 2020-08-07 18:58 | NUR ---
CORRAL BOSS CLOSING NOTES PATIENT IN BED, OBTUNDED, ON VENT SETTINGS TOLERATING WELL. L HAND G # 20 AND ADRIAN MIDLINE PRESENT AND INTACT WITH D5W INFUSING AT 50 MLS/HR. PATIENT HAS A TONEY; DRAINING CLEAR YELLOW URINE WITH DAY TIME OUTPUT OF 1400 MLS. G-TUBE PRESENT WELL INFUSING GLUCERNA AT 60 CC/HR. NO S/S OF PAIN SUCH FACIAL GRIMACING, MOANING OR GUARDING. ALL NEEDS ATTENDED DURING THE DAY. PATIENT READY FOR DISCHARGE IN THE AM. DOCUMENTS READY EXCEPT REPORT TO SNIFF. WILL ENDORSE TO OPERATING SYSTEMS SPECIALIST NURSE. SAFETY PRECAUTIONS IN PLACE; BED IN LOW POSITION AND LOCKED, RAILS UP X2, CALL LIGHT WITHIN REACH. WILL ENDORSE TO OPERATING SYSTEMS SPECIALIST NURSE.
--- NOTE | 2020-08-07 19:15 | NUR ---
RN OPENING NOTES Received patient on bed, obtunded. On vent with current settings tolerated well, no signs of respiratory distress noted. On GTF as ordered, tolerating well. On tele monitor with NSR noted. On fall and aspiration precautions. Kept on bed clean, dry and comfortable. Will continue to monitor accordingly.
[2020-08-07] MEDS: ATORVASTATIN 10 MG TABLET GT SCH (21:15)
[2020-08-08] VITALS: BP 122/37
[2020-08-08] MEDS: BLOOD SUGAR DIAGNOSTIC 1 EACH STRIP IN SCH ×4 (01:39→18:00)
[2020-08-08] MEDS: INSULIN REGULAR, HUMAN 100 UNIT/ML 3 ML VIAL SQ PRN ×4 (01:45→18:22)
[2020-08-08] MEDS: ALBUTEROL HALF STRENGTH 1.25 MG/3 ML VIAL.NEB NEB SCH ×5 (03:23→20:19)
[2020-08-08] MEDS: IPRATROPIUM NEB FS 0.5 MG/2.5 ML AMPUL.NEB NEB SCH ×5 (03:23→20:19)
[2020-08-08] MEDS: clonazePAM 0.5 MG TABLET GT SCH ×3 (05:15→21:40)
[2020-08-08] MEDS: hydrALAZINE HCL 50 MG TABLET GT SCH ×3 (05:16→21:40)
[2020-08-08] MEDS: ropiniROLE 0.5 MG TABLET GT SCH ×3 (05:16→21:39)
--- NOTE | 2020-08-08 06:36 | NUR ---
RN CLOSING NOTES Pt on bed, no s/sx of distress noted. NSR on tele monitor. All nursing needs attended, due meds given as ordered. For discharge today. Endorsed.
[2020-08-08 06:46] LABS: CREATININE 1.4 mg/dL (0.6-1.3); POTASSIUM 5.2 mmol/L (3.5-5.1)
[2020-08-08] MEDS: ACETYLCYSTEINE 20% SOLN 800 MG/4 ML VIAL NEB SCH ×2 (07:19→15:00)
--- NOTE | 2020-08-08 07:53 | NUR ---
RN OPEN NOTES PATIENT IS OBTUNDED WITH NO SIGNS OF ACUTE DISTRESS ON VENTILATOR. ON TELE MONITOR SR NOTED. IV L HAND #20 G INTACT AND ADRIAN MIDLINE RUNNING D5W AT 50 ML/HR. TONEY CATHETER INTACT. G-TUBE INTACT FEEDING GLUCERNA AT 60 ML/HR. SAFETY MEASURES ARE APPLIED, BED IS LOW AND LOCKED POSITION. SIDE RAILS UP X 2 FOR SAFETY. CALL LIGHT WITHIN REACH. WILL CONTINUE TO MONITOR.
[2020-08-08 08:00] VITALS: BP 115/50
[2020-08-08] MEDS ORDERED: SODIUM POLYSTYRENE SULFONATE 15 G/60 ML BOTTLE PO ONE (08:00)
[2020-08-08] MEDS: METOPROLOL TARTRATE 25 MG TABLET GT SCH ×2 (09:00→21:40)
[2020-08-08] MEDS: AMLODIPINE BESYLATE 10 MG TABLET GT SCH (09:00)
[2020-08-08] MEDS: LamoTRIgine 25 MG TABLET GT SCH (09:31)
[2020-08-08] MEDS: METOLAZONE 2.5 MG TABLET PO SCH (09:32)
[2020-08-08] MEDS: PANTOPRAZOLE 40 MG/PACK PACK GT SCH ×2 (09:32→21:40)
[2020-08-08] MEDS: ASPIRIN 81 MG TAB.CHEW GT SCH (09:32)
[2020-08-08] MEDS: FOLIC ACID 1 MG TABLET PO SCH (09:32)
[2020-08-08] MEDS: DAKINS QUARTER STRENGTH (0.125%) 480 ML BOTTLE TOP SCH (09:33)
[2020-08-08] MEDS: Z GUARD REMEDY 2 OZ OINT TP SCH (09:35)
[2020-08-08] MEDS: INSULIN GLARGINE, 100 UNIT/ML CARTRIDGE SQ SCH ×2 (09:54→21:56)
[2020-08-08] MEDS: GLUCERNA 1.2 1,000 ML BOTTLE NG PRN (10:04)
[2020-08-08] MEDS: CEFTAZIDIME 2 G in IV D5W 100 ML IV SCH ×2 (10:08→21:41)
[2020-08-08 12:00] VITALS: BP 116/74
--- NOTE | 2020-08-08 14:00 | NUR ---
RN NOTE: Patient endorsed by SALAZAR Madison for HAILEY.
[2020-08-08 16:00] VITALS: BP 120/46
[2020-08-08] MEDS: DOCUSATE SODIUM LIQ 100 MG/10 ML UDC GT SCH (17:15)
[2020-08-08] MEDS ORDERED: CEFT2VIA6 IV (17:41)
[2020-08-08] MEDS ORDERED: VANC1FRO2 IV (17:41)
--- NOTE | 2020-08-08 19:01 | NUR ---
RN CLOSING NOTE: No acute changes noted on shift. Patient remains in bed and obtunded. [facility] tolerating prescribed settings, saturating well @ 96%, No SOB and not in respiratory distress. No pain noted. PEG tube patent and in place. Larson catheter draining yellow urine. Discharge paperworks done. Patient was scheduled for potato picker @ 1800, awaiting follow up on transportation. [facility] Call light in reach. Bed locked, low and at semi-flores's position. Side rails up x3. All due medications given. Needs attended and met. Safety ensured and observed. Will endorse to oncoming shift for HAILEY.
--- NOTE | 2020-08-08 19:14 | NUR ---
SUPERVISOR SOAKERS OPENING NOTES PATIENT OBTUNDED AND VENT DEPENDENT; TOLERATING VENT SETTINGS WELL; CONTINUOUS PULSE OX READING 100%. TELE MONITOR READING SINUS TACH, HEART RATE 116. NO S/S OF ACUTE RESPIRATORY DISTRESS; BREATHING IS EVEN AND UNLABORED. NO S/S OF PAIN NOTED. IV PRESENT ON LEFT HAND, SIZE 20 & RIGHT UPPER ARM MIDLINE, BOTH INTACT, PATENT, AND HEP LOCKED. GTUBE FEEDING WITH GLUCERNA PRESENT RUNNING AT 60 ML/HR. TONEY CATH PRESENT AND DRAINING WELL. SAFETY MEASURES IN PLACE AND PATIENT'S NEEDS MET. BED LOCKED, ALARM ON, HOB ELEVATED, SIDE RAILS X3. WILL CONTINUE TO MONITOR.
--- NOTE | 2020-08-08 19:53 | NUR ---
HEALTHCARE NETWORK PRICING CONSULTANT NOTES RECEIVED CALL FROM [facility] REGARDING BED FOR PATIENT; PER NURSE, UNABLE TO ACCEPT PATIENT AT THIS TIME DUE TO NO ISOLATION ROOM AVAILABILITY. CHARGE NURSE AND DR. LYNN MADE AWARE.
[2020-08-08 20:00] VITALS: BP 162/77
[2020-08-08] MEDS: VANCOMYCIN 1 GM in IV D5W 250 ML IV SCH (20:02)
[2020-08-08] MEDS: ATORVASTATIN 10 MG TABLET GT SCH (21:39)
[2020-08-09] VITALS (7 sets, daily range): BP systolic 114–148; BP diastolic 37–77
[2020-08-09] MEDS: ACETYLCYSTEINE 20% SOLN 800 MG/4 ML VIAL NEB SCH ×3 (00:01→14:35)
[2020-08-09] MEDS: BLOOD SUGAR DIAGNOSTIC 1 EACH STRIP IN SCH ×4 (01:09→17:19)
[2020-08-09] MEDS: INSULIN REGULAR, HUMAN 100 UNIT/ML 3 ML VIAL SQ PRN (01:12)
[2020-08-09] MEDS: ALBUTEROL HALF STRENGTH 1.25 MG/3 ML VIAL.NEB NEB SCH ×6 (03:52→20:31)
[2020-08-09] MEDS: IPRATROPIUM NEB FS 0.5 MG/2.5 ML AMPUL.NEB NEB SCH ×6 (03:52→20:31)
[2020-08-09] MEDS: GLUCERNA 1.2 1,000 ML BOTTLE NG PRN (04:49)
[2020-08-09] MEDS: hydrALAZINE HCL 50 MG TABLET GT SCH ×2 (04:50→13:33)
[2020-08-09] MEDS: clonazePAM 0.5 MG TABLET GT SCH ×2 (04:50→12:09)
[2020-08-09] MEDS: ropiniROLE 0.5 MG TABLET GT SCH ×2 (04:50→12:09)
[2020-08-09] MEDS: IV D5W 1,000 ML IV PRN ×2 (04:59→15:47)
[2020-08-09 06:29] LABS: BASOPHILS # (AUTO) 0.1 /CMM (0.0-0.2); EOSINOPHILS % (AUTO) 1.8 % (0.0-6.0); HEMATOCRIT 25 % (33-45); HEMOGLOBIN 7.4 g/dL (11.5-14.8); LYMPHOCYTES % (AUTO) 13.1 % (20.0-44.0); MEAN CORPUSCULAR HGB CONC 30 g/dl (31.0-36.0); MEAN CORPUSCULAR VOLUME 79 fL (82-100); MONOCYTES # (AUTO) 0.5 /CMM (0.1-1.30); MONOCYTES % (AUTO) 6.4 % (2.0-12.0); NEUTROPHILS # (AUTO) 5.7 /CMM (1.8-8.9); NEUTROPHILS % (AUTO) 77.7 % (43.0-81.0); PLATELET COUNT (AUTO) 578 /CMM (150-450); WHITE BLOOD COUNT (AUTO) 7.4 K/uL (4.3-11.0)
[2020-08-09 06:55] LABS: CALCIUM, SERUM 8.9 mg/dL (8.5-10.1); CREATININE 1.2 mg/dL (0.6-1.3)
--- NOTE | 2020-08-09 07:34 | NUR ---
MS RN CLOSING NOTES PATIENT OBTUNDED AND VENT DEPENDENT; TOLERATING VENT SETTINGS WELL; CONTINUOUS PULSE OX READING 100%. TELE MONITOR READING NSR, HEART RATE 91. NO S/S OF ACUTE RESPIRATORY DISTRESS; BREATHING IS EVEN AND UNLABORED. NO S/S OF PAIN NOTED. IV PRESENT ON LEFT HAND, SIZE 20, INTACT & PATENT, HEP LOCKED. MIDLINE PRESENT ON RIGHT UPPER ARM, INTACT & PATENT WITH D5W RUNNING AT 50 ML/HR. GTUBE FEEDING WITH GLUCERNA PRESENT RUNNING AT 60 ML/HR. TONEY CATH REMAINS INTACT & PATENT. SAFETY MEASURES IN PLACE AND PATIENT'S NEEDS MET. BED LOCKED, ALARM ON, HOB ELEVATED, SIDE RAILS X3. ENDORSED TO DAY SHIFT RN PLAN OF CARE.
--- NOTE | 2020-08-09 07:35 | NUR ---
RN IMCU NOTES PATIENT RECEIVED IN BED, WITH OBTUNDED RESPOND, ABLE TO OPEN AND CLOSE EYES. TOLERATING VENT SETTINGS WELL WITH SPO2 AT 100%, WITH EVEN NON-LABORED BREATHING, AND NO APPARENT/ RESPIRATORY DISTRESS AT THIS TIME. PATIENT ON FARM TRACTOR OPERATOR SINUS RHYTHM 94. IV ACCESS INTACT AND PATENT, WITH IV FLUIDS INFUSING AT 50ml/hr. G-TUBE INTACT AND PATENT WITH GLUCERNA 1.2 INFUSING AT 60ml/hr. TONEY CATHETER IN PLACE URINE FLOWING BY GRAVITY. SAFETY PRECAUTIONS IMPLEMENTED WITH BED LOCKED, BED IN THE LOWEST POSITION, BILATERAL SIDE RAILS UP, BED ALARM ON, AND CALL LIGHT WITHIN EASY REACH OF PATIENT. WILL CONTINUE TO MONITOR PATIENT.
[2020-08-09] MEDS: METOLAZONE 2.5 MG TABLET PO SCH (09:08)
[2020-08-09] MEDS: ASPIRIN 81 MG TAB.CHEW GT SCH (09:08)
[2020-08-09] MEDS: LamoTRIgine 25 MG TABLET GT SCH (09:09)
[2020-08-09] MEDS: FOLIC ACID 1 MG TABLET PO SCH (09:09)
[2020-08-09] MEDS: PANTOPRAZOLE 40 MG/PACK PACK GT SCH (09:11)
[2020-08-09] MEDS: CEFTAZIDIME 2 G in IV D5W 100 ML IV SCH (09:11)
[2020-08-09] MEDS: AMLODIPINE BESYLATE 10 MG TABLET GT SCH (09:12)
[2020-08-09] MEDS: METOPROLOL TARTRATE 25 MG TABLET GT SCH (09:13)
--- NOTE | 2020-08-09 09:15 | NUR ---
DIET AIDE NOTES CALLED PHARMACY FOR DAKIN SOLUTION DUE TO BOTTLE FINISHING.
[2020-08-09] MEDS: INSULIN GLARGINE, 100 UNIT/ML CARTRIDGE SQ SCH (09:21)
[2020-08-09] MEDS: Z GUARD REMEDY 2 OZ OINT TP SCH (09:46)
[2020-08-09] MEDS: DAKINS QUARTER STRENGTH (0.125%) 480 ML BOTTLE TOP SCH (12:09)
--- NOTE | 2020-08-09 12:17 | NUR ---
ORGANIC PREPARATION TECHNICIAN NOTES PATIENT'S BLOOD SUGAR 101, PER SLIDING SCALE PROTOCOL NO INSULIN COVERAGE NEEDED, AND WILL CONTINUE TO MONITOR PATIENT.
[2020-08-09] MEDS ORDERED: KEY,NONCONTROL,TO KEEP IN PYXI 1 EA MC ONE (13:21)
--- NOTE | 2020-08-09 14:30 | NUR ---
RESEARCH ASSOCIATE QUALITY CONTROL QC NOTES [facility], SPOKE WITH SALAZAR AMADOR, . WILL AWAIT FOR TRANSPORTATION AND WILL CONTINUE TO MONITOR PATIENT AT THIS TIME.
[2020-08-09] MEDS: DOCUSATE SODIUM LIQ 100 MG/10 ML UDC GT SCH (17:19)
--- NOTE | 2020-08-09 17:19 | NUR ---
SEQUINS SLINGER NOTES PATIENT'S BLOOD SUGAR 96, PER SLIDING SCALE PROTOCOL NO INSULIN COVERAGE NEEDED, AND WILL CONTINUE TO MONITOR PATIENT.
--- NOTE | 2020-08-09 18:15 | NUR ---
SEAT COVERS TRIMMER NOTES PATIENT IN BED, WITH OBTUNDED RESPOND, ABLE TO OPEN AND CLOSE EYES. TOLERATING VENT SETTINGS WELL WITH SPO2 AT 100%, WITH EVEN NON-LABORED BREATHING, AND NO APPARENT/ RESPIRATORY DISTRESS AT THIS TIME. PATIENT ON SHRUB PLANTER SINUS RHYTHM 99. IV ACCESS INTACT AND PATENT, WITH IV FLUIDS, D5W INFUSING AT 50ml/hr. G-TUBE INTACT AND PATENT WITH GLUCERNA 1.2 INFUSING AT 60ml/hr. TONEY CATHETER IN PLACE URINE FLOWING BY GRAVITY. PATIENT ORIGINAL DEMO SPECIALIST TIME WAS AT 1600, CALLED CASE MANAGEMENT AND STATES NEW DEMO SPECIALIST TIME WILL BE AT 1930. PATIENT PRESENTS WITH NO PAIN OR DISCOMFORT AT THIS TIME, MET ALL OF PATIENT'S NEEDS. SAFETY PRECAUTIONS IMPLEMENTED WITH BED LOCKED, BED IN THE LOWEST POSITION, BILATERAL SIDE RAILS UP, BED ALARM ON, AND CALL LIGHT WITHIN EASY REACH OF PATIENT. WILL ENDORSE PLAN OF CARE TO UPCOMING RN.
--- NOTE | 2020-08-09 19:20 | NUR ---
EXTRUSION PRESS OPERATOR OPEN NOTES PATIENT IS LAYING IN BED. OBT[facility]DED. [facility] TOL[facility] WELL, NO SOB/ ACUTE RESPIRATORY DISTRESS NOTED. TELE MONITOR READING SR, 94. MIDLINE IN R UPPERARM IS PATENT AND INTACT. TONEY CATHETER IN PLACE DRAINING CLEAR YELLOW URINE. G TUBE IN PLACE RECEIVING FEEDING @ 60MLS/HR. BED IS IN LOWEST LOCKED POSITION WITH SIDE RAILS UP X3, SEMI FOWLERS. CALL LIGHT IS WITHIN REACH. WILL CONTINUE TO MONITOR.
--- NOTE | 2020-08-09 19:35 | NUR ---
MANAGER PERSONNEL SELECTION NOTES AWAITING TECHNICAL SOLUTION ARCHITECT [facility] ACCORDING TO DAY NURSE, PT'S TECHNICAL SOLUTION ARCHITECT TIME IS @ 1930. WILL CONTINUE TO MONITOR PT.
--- NOTE | 2020-08-09 19:43 | NUR ---
HOSPITAL COORDINATOR NOTES SPOKE WITH MANINDER AT [facility] REGARDING PT. ACCORDING TO HER, REPORT WAS ALREADY GIVEN DURING THE DAY SHIFT.
--- NOTE | 2020-08-09 21:15 | NUR ---
CREW TRUCK DRIVER NOTES PT PICKED UP FROM [facility]ORTER[facility]IA GURNEY. GAVE REPORT TO CARLITOS LINCOLN WHO WILL HELP TRANSPORT PT TO FACILITY. PT IS OBTUNDED, ABLE TO OPEN EYES. ON [facility] VENT TOLERATING WELL, NO SOB/ ACUTE RESPIRATORY DISTRESS NOTED. TELE MONITOR READING SR, 99. IV IN L HAND #20G AND MIDLINE IN ADRIAN ARE BOTH INTACT AND PATENT. PER AM NURSE, LEAVE BOTH IV ACCESSES ON FOR [facility] DUE TO HER ONGOING SCHEDULED IV ANTIBIOTICS. TONEY CATHETER ALSO LEFT IN PLACE FOR FACILITY. G TUBE IN PLACE, FLUSHES EASILY. ALL DISCHARGE PAPERWORK DONE, COPIES PLACED IN CHART. PHOTOS ALSO PLACED IN CHART. VITAL SIGNS UPON DC: BP 132/67 HR 94 RR 18 TEMP 96.9 O2 SAT 100%
== END 2020-08-09 21:15 | DRG 710 ==
LOC: ER 20:50 → TELE-TD 23:00 → TELE1 07-30 07:57 → ICU 08-06 17:41 → MEDSG2 08-07 09:36 → TELE 08-07 11:35
PROVIDERS: ADMIT Legal Medicine; ATTEND Legal Medicine
PROC: 5A1955Z Respiratory Ventilation, Greater than 96 Consecutive Hours (ICD-10-PCS; principal; 2020-07-29)
PROC: 30233N1 Transfusion of Nonautologous Red Blood Cells into Peripheral Vein, Percutaneous Approach (ICD-10-PCS; 2020-07-30)
PROC: 0QB10ZZ Excision of Sacrum, Open Approach (ICD-10-PCS; 2020-08-03)
PROC: 05HY33Z Insertion of Infusion Device into Upper Vein, Percutaneous Approach (ICD-10-PCS; 2020-08-04)
DX: A41.9 Sepsis, unspecified organism (principal); E11.69 Type 2 diabetes mellitus with other specified complication; Z93.0 Tracheostomy status; Z86.73 Personal history of transient ischemic attack (TIA), and cerebral infarction without residual deficits; G20 Parkinson's disease; F02.80 Dementia in other diseases classified elsewhere, unspecified severity, without behavioral disturbance, psychotic disturbance, mood disturbance, and anxiety; G40.909 Epilepsy, unspecified, not intractable, without status epilepticus; N18.9 Chronic kidney disease, unspecified; Z99.11 Dependence on respirator [ventilator] status; I12.9 Hypertensive chronic kidney disease with stage 1 through stage 4 chronic kidney disease, or unspecified chronic kidney disease; J96.10 Chronic respiratory failure, unspecified whether with hypoxia or hypercapnia; N17.0 Acute kidney failure with tubular necrosis; E11.22 Type 2 diabetes mellitus with diabetic chronic kidney disease; M46.28 Osteomyelitis of vertebra, sacral and sacrococcygeal region; L89.154 Pressure ulcer of sacral region, stage 4; D50.9 Iron deficiency anemia, unspecified; E78.5 Hyperlipidemia, unspecified; E83.52 Hypercalcemia; E87.5 Hyperkalemia; G92 Toxic encephalopathy; G93.1 Anoxic brain damage, not elsewhere classified; I48.20 Chronic atrial fibrillation, unspecified; K21.9 Gastro-esophageal reflux disease without esophagitis; Z88.0 Allergy status to penicillin; Z79.01 Long term (current) use of anticoagulants; Z79.4 Long term (current) use of insulin; J18.9 Pneumonia, unspecified organism; M89.9 Disorder of bone, unspecified; E87.0 Hyperosmolality and hypernatremia; Z93.1 Gastrostomy status; D65 Disseminated intravascular coagulation [defibrination syndrome]; J98.11 Atelectasis; L90.5 Scar conditions and fibrosis of skin; E83.9 Disorder of mineral metabolism, unspecified
CPT/HCPCS: 31720; 36415; 36600; 71045-TC; 72192-TC; 80048-TC; 80053-TC; 80076-TC; 80202-TC; 81000-TC; 82272-TC; 82436-TC; 82533; 82570-TC; 82728-TC; 82784; 82962-TC; 83010; 83540-TC; 83615-TC; 83690-TC; 83735-TC; 83935-TC; 83970; 84100-TC; 84132-TC; 84133-TC; 84155; 84155-TC; 84165; 84244; 84300-TC; 84443-TC; 84484-TC; 85025-TC; 85045-TC; 85385-TC; 85396; 85610-TC; 85730-TC; 86334; 86706; 86803; 86850-TC; 87040-TC; 87070-TC; 87081-TC; 87186-TC; 87340; 94002-TC; 94003-TC; 94760-TC; 94762-TC; 94799-TC; 99082-TC; A4217; A4623; A6253; A6403; A7526; C9113; C9803; G0378; J0713; J1815; J1940; J2185; J2270; J2543; J2916; J3370; J3490; J7030; J7040; J7050; J7060; J7070; P9016-BL; U0003

== ENCOUNTER 2020-10-06 12:44 | Inpatient (IN) | payer OTHER ==
[~2020-10-06] VITALS: Ht 167.6 cm; Wt 86.2 kg
[~2020-10-06 12:44] MED LIST: AMLO-213 GT; ASCO-340 GT; ASPI-1169 GT; ATOR10TA GT; CEFT2VIA6 IV; CITR15SO GT; CLON0.5T4 GT; DOCU50LI GT; EPOE1000 SQ; FAMO20TA8 GT; FERR220S2 GT; FOLI0.4T2 GT; FOLI0.8T2 GT; HYDR-4384 GT; HYDR100T27 GT; INSU100V3 SQ; INSU100V7 SQ; LAMO25TA10 GT; METO25TA6 GT; NUTR1PAC14 GT; ROPI0.255 GT; SODI100037 GT; VANC1FRO2 IV; ZINC220T4 GT
--- NOTE | 2020-10-06 13:00 | NUR ---
BIB RA FROM [facility]ARE FACILITY FOR LOW BP 86/40. PATIENT A/OXO, ON MECHANICAL VENT AND TOLERATING WELL. NEEDS ATTENDED. IV LINE ESTABLISHED.
--- NOTE | 2020-10-06 13:30 | NUR ---
BLOOD DRAWN AND SENT TO LAB.
[2020-10-06 13:44] LABS: BASOPHILS % (AUTO) 0.4 % (0.0-2.0); HEMATOCRIT 22 % (33-45); HEMOGLOBIN 7.1 g/dL (11.5-14.8); LYMPHOCYTES # (AUTO) 0.3 /CMM (0.8-4.8); LYMPHOCYTES % (AUTO) 2.9 % (20.0-44.0); MEAN CORPUSCULAR HGB CONC 32 g/dl (31.0-36.0); MEAN CORPUSCULAR VOLUME 81 fL (82-100); MONOCYTES # (AUTO) 0.3 /CMM (0.1-1.30); MONOCYTES % (AUTO) 3.4 % (2.0-12.0); NEUTROPHILS # (AUTO) 8.1 /CMM (1.8-8.9); NEUTROPHILS % (AUTO) 93.3 % (43.0-81.0); PLATELET COUNT (AUTO) 598 /CMM (150-450); RED BLOOD CELL COUNT(AUTO) 2.75 MIL/uL (4.0-5.2); WHITE BLOOD COUNT (AUTO) 8.6 K/uL (4.3-11.0)
[2020-10-06 14:04] LABS: ALANINE AMINOTRANSFERASE 22 U/L (12-78); ALKALINE PHOSPHATASE 208 U/L (46-116); ASPARTATE AMINOTRANSFERASE 59 U/L (15-37); BILIRUBIN,DIRECT 0.1 mg/dL (0.0-0.2); BILIRUBIN,TOTAL 0.4 mg/dL (0.2-1.0); CALCIUM, SERUM 9.4 mg/dL (8.5-10.1); CARBON DIOXIDE 21 mmol/L (21-32); CHLORIDE 81 mmol/L (98-107); GLUCOSE 188 mg/dL (74-106); POTASSIUM 5.8 mmol/L (3.5-5.1); SODIUM SERUM 127 mmol/L (136-145)
[2020-10-06 14:06] LABS: ALBUMIN 1.4 g/dL (3.4-5.0); CREATININE 9.8 mg/dL (0.6-1.3); UREA NITROGEN, BLOOD 366 mg/dL (7-18)
[2020-10-06] MEDS ORDERED: DEXTROSE 50%-WATER 50 ML DISP.SYRIN ONE (14:20)
[2020-10-06] MEDS ORDERED: SODIUM BICARBONATE SYR 50 MEQ/50 ML DISP.SYRIN ONE (14:21)
[2020-10-06] MEDS ORDERED: Calcium Gluconate 0.465 MEQ/ML VIAL IV ONE ×2 (14:21→14:25)
[2020-10-06] MEDS ORDERED: INSULIN REGULAR, HUMAN 100 UNIT/ML 10 ML VIAL ONE (14:21)
[2020-10-06] MEDS ORDERED: INSULIN REGULAR, HUMAN 100 UNIT/ML 10 ML VIAL IV ONE (14:30)
[2020-10-06] MEDS ORDERED: SODIUM BICARBONATE SYR 50 MEQ/50 ML DISP.SYRIN IV ONE (14:30)
[2020-10-06] MEDS ORDERED: Calcium Gluconate 1GM/10ML 9.3 MEQ in IV D5W 250 ML IV ONE (14:30)
[2020-10-06] MEDS ORDERED: DEXTROSE 50%-WATER 50 ML DISP.SYRIN IV ONE (14:30)
[2020-10-06] MEDS ORDERED: IV NS 0.9% 500 ML BAG IV ONE ×2 (14:30)
[2020-10-06] MEDS ORDERED: LEVOFLOXACIN 750 MG /D5W 150ML 150 ML IV ONE ×2 (15:00→15:13)
[2020-10-06] MEDS ORDERED: METRONIDAZOLE 500MG/ NS 100ML 100 ML IV ONE ×2 (15:00→15:12)
[2020-10-06] MEDS ORDERED: AZTREONAM 1 G in IV NS 0.9% 100 ML IV ONE (15:00)
[2020-10-06] MEDS ORDERED: HYDROCORTISONE SOD SUCCINATE 100 MG/2 ML VIAL IV ONE (15:00)
[2020-10-06] MEDS ORDERED: PANTOPRAZOLE 80 MG in IV NS 0.9% 500 ML IV ONE (15:00)
[2020-10-06] MEDS ORDERED: IV NS 0.9% 1,000 ML BAG IV ONE (15:00)
[2020-10-06] MEDS ORDERED: ERYT200S16 GT (15:12)
[2020-10-06] MEDS ORDERED: METO5SOL2 GT (15:12)
[2020-10-06] MEDS ORDERED: CHLO473M5 MM (15:12)
[2020-10-06] MEDS ORDERED: MAGN400O6 GT (15:12)
[2020-10-06] MEDS ORDERED: ZINC50TA65 GT (15:12)
[2020-10-06] MEDS ORDERED: ACET650S26 GT (15:12)
[2020-10-06] MEDS ORDERED: AMIN30LI2 GT (15:12)
[2020-10-06] MEDS ORDERED: NA P133E RC (15:12)
[2020-10-06] MEDS ORDERED: BISA10SU11 RC (15:12)
[2020-10-06] MEDS ORDERED: ALBU8.5H8 IH ×2 (15:12)
[2020-10-06] MEDS ORDERED: RIVA10TA GT (15:12)
[2020-10-06] MEDS ORDERED: NUT.237L67 GT (15:12)
[2020-10-06] MEDS ORDERED: HYDROCORTISONE SOD SUCCINATE 100 MG/2 ML VIAL ONE (15:13)
[2020-10-06 15:41] LABS: BILIRUBIN,URINE NEGATIVE (NEGATIVE); COLOR,URINE YELLOW (YELLOW); LEUKOCYTE ESTERASE ,URINE LARGE (NEGATIVE); NITRITE, URINE POSITIVE (NEGATIVE); PH,URINE 7.5 (5.0-8.0); PROTEIN,URINE 100 mg/dl (NEGATIVE); UGLUCOSE NEGATIVE (NEGATIVE); UROBILINOGEN,URINE 0.2 EU/dL (0.2)
--- NOTE | 2020-10-06 16:05 | NUR ---
DR. LYNN CALLED AND GAVE ADMISSION ORDERS. FAXED TO PHARMACY.
[2020-10-06 16:18] LABS: RBC,URINE 51-80 /HPF (0-2)
[2020-10-06 16:19] LABS: BACTERIA,URINE Many /HPF (None Seen); SQUAMOUS EPITHELIAL CELL,UR Few /HPF (None Seen); YEAST,URINE Many /HPF (None Seen)
[2020-10-06] MEDS ORDERED: SODIUM POLYSTYRENE SULFONATE 15 G/60 ML BOTTLE ONE (16:24)
[2020-10-06] MEDS ORDERED: SODIUM POLYSTYRENE SULF. PWD 15 GM UDC GT ONE (16:30)
[2020-10-06] MEDS ORDERED: PANTOPRAZOLE 40 MG VIAL ONE (16:31)
--- NOTE | 2020-10-06 17:00 | NUR ---
SON AT BEDSIDE.
[2020-10-06] MEDS ORDERED: MORPHINE SULFATE INJ 2 MG/ML DISP.SYRIN IV ONE (18:00)
[2020-10-06] MEDS ORDERED: MORPHINE SULFATE INJ 2 MG/ML DISP.SYRIN ONE (18:03)
--- NOTE | 2020-10-06 18:42 | NUR ---
BLOOD TRANSFUSION INITIATED. NO ADVERSE REACTION NOTED AT THIS TIME.
--- NOTE | 2020-10-06 19:41 | NUR ---
TOOK OVER PT CARE. PT CURRENTLY ON VENT TV 400, R 12, O2 40, PEEP OF 5. PT NOTED GINA AT 30. PT RECIEVING BLOOD TRANSFUSION. WILL CONTINUE TO MONITOR.
--- NOTE | 2020-10-06 20:20 | NUR ---
SPOKE TO THE SON ROOSEVELT (ELDEST) STATED HE DOES NOT WANT THE PT TO BE DNR. UPON CHECKING THE PT'S CHART SHANTI (YOUNGEST SON) HAD SIGNED THE POLST FOR THE PT TO BE PLACED DNR SINCE 09/02/20. I DID SPEAK TO THE ER MD REGARDING THE SITUATION, I WAS TOLD TO CALL MD LYNN REGARDING IT. LEAH WAS CALLED, AWAITING FOR CALL BACK.
[2020-10-06] MEDS ORDERED: ONDANSETRON HCL/PF 4 MG/2 ML VIAL IVP PRN (20:30)
[2020-10-06] MEDS ORDERED: ACETAMINOPHEN 325 MG TABLET PO PRN (20:30)
[2020-10-06] MEDS ORDERED: LORAZEPAM INJ 2 MG/ML VIAL IVP PRN (20:30)
[2020-10-06] MEDS ORDERED: MORPHINE SULFATE INJ 2 MG/ML DISP.SYRIN IV PRN (20:30)
--- NOTE | 2020-10-06 20:35 | NUR ---
SPOKE TO MD LYNN, STATED TO CALL THE FACILITY AND ASK IF SHANTI (YOUNGEST SON) IS THE DECISIONMAKER. WILL CALL FACILITY AND FOLLOW UP.
--- NOTE | 2020-10-06 20:42 | NUR ---
SPOKE TO [facility], NURSE STATED THAT SHANTI MOREIRA (YOUNGEST SON) IS THE DECISION MAKER. WILL CALL MD LYNN BACK REGARDING UPDATE.
[2020-10-06] MEDS ORDERED: VANCOMYCIN 1 GM in IV D5W 250ml IV ONE (21:00)
[2020-10-06] MEDS ORDERED: MEROPENEM 500 MG VIAL IV ONE (21:03)
[2020-10-06] MEDS: MEROPENEM 500 MG in IV NS 0.9% 50 ML IV SCH (21:05)
--- NOTE | 2020-10-06 21:07 | NUR ---
[phone] SHANTI (YOUNGEST SON)
--- NOTE | 2020-10-06 21:08 | NUR ---
[phone] ROOSEVELT (ELDEST SON)
[2020-10-06] MEDS ORDERED: VANCOMYCIN 1 GM VIAL ONE (21:13)
[2020-10-06] MEDS: IV NS 0.9% 1,000 ML IV PRN (21:15)
--- NOTE | 2020-10-06 21:43 | NUR ---
PT ON CHILDREN'S MINISTRY DIRECTOR AND PULSE OX. WILL CONTINUE TO MONITOR.
[2020-10-07] MEDS: BLOOD SUGAR DIAGNOSTIC 1 EACH STRIP IN SCH ×4 (00:03→16:43)
--- NOTE | 2020-10-07 01:35 | NUR ---
PT RESTING, REMAINS ON VENT, ON TRANSMISSION TECHNICIAN, AND PULSE OX. VSS. REMAINS GINA AND HYPOTENSIVE.
--- NOTE | 2020-10-07 05:19 | NUR ---
PT REMAINS ON VENT, WILL CONTINUE TO MONITOR.
[2020-10-07 06:27] LABS: CALCIUM, SERUM 8.5 mg/dL (8.5-10.1); POTASSIUM 5.7 mmol/L (3.5-5.1)
[2020-10-07 06:56] LABS: CREATININE 9.4 mg/dL (0.6-1.3)
--- NOTE | 2020-10-07 07:00 | NUR ---
PT REMAINS ON VENT, ON CARIDAC MONITOR AND PULSE OX.
--- NOTE | 2020-10-07 07:51 | NUR ---
ENDORSEMENT RECEIVED FROM DAVID LINCOLN FOR CONTINUITY OF CARE. PATIENT ON TRACH, VENT DEPENDENT WITH SETTINGS RATE 12, VT 400 O2 40% PEEP 5. KEPT WARM AND COMFORTABLE.
--- NOTE | 2020-10-07 08:47 | NUR ---
DR LYNN AT BEDSIDE. MADE AWARE OF FINAL DECISION OF FAMILY THAT PATIENT IS ON DNR DNI. KEPT PATIENT WARM AND COMFORTABLE.
[2020-10-07] MEDS ORDERED: ALBUTEROL FS 2.5 MG/3 ML VIAL.NEB NEB PRN (09:30)
[2020-10-07] MEDS ORDERED: ACETAMINOPHEN 650 MG/20.3 ML UDC GT PRN (09:30)
[2020-10-07] MEDS ORDERED: MAGNESIUM HYDROXIDE 30 ML UDC GT PRN (09:30)
[2020-10-07] MEDS ORDERED: NEPRO 1,000 ML BOTTLE GT SCH (09:30)
[2020-10-07] MEDS ORDERED: INSULIN REGULAR, HUMAN 100 UNIT/ML 3 ML VIAL SQ PRN (09:30)
[2020-10-07] MEDS ORDERED: clonazePAM 0.5 MG TABLET GT PRN (09:30)
[2020-10-07] MEDS: HYDROCORTISONE SOD SUCCINATE 100 MG/2 ML VIAL IV SCH ×2 (09:38→17:37)
[2020-10-07] MEDS: PANTOPRAZOLE 40 MG VIAL IV SCH ×2 (09:39→21:21)
[2020-10-07] MEDS: MEROPENEM 500 MG in IV NS 0.9% 50 ML IV SCH ×2 (09:42→21:30)
[2020-10-07] MEDS: INSULIN GLARGINE, 100 UNIT/ML CARTRIDGE SQ SCH ×2 (10:52→21:36)
--- NOTE | 2020-10-07 10:56 | NUR ---
LAB CALLED AFTAB OF 19.558 MADE AWARE.
--- NOTE | 2020-10-07 11:03 | NUR ---
SPOKE TO SHANTI (YOUNGEST SON) [phone], UPDATED WITH PATIENT STATUS.
--- NOTE | 2020-10-07 11:05 | NUR ---
DR LYNN MADE AWARE OF PATIENT'S TROPONIN
[2020-10-07 11:12] LABS: ABG BASE EXCESS -8.3 mmol/L; ABG OXYGEN SATURATION 91.9 % (92.0-98.5); ABG PCO2 27.2 mmHg (35.0-45.0); ABG PH 7.379 (7.350-7.450); ABG PO2 69.7 mmHg (75.0-100.0); AaDO2 184.2 mmHg; COHb 0.4 % (0.5-1.5); MetHb 0.6 % (0.0-1.5); SITE, ABG Right Brachial
[2020-10-07] MEDS ORDERED: SODIUM POLYSTYRENE SULF. PWD 15 GM UDC GT ONE (12:30)
[2020-10-07] MEDS: LamoTRIgine 25 MG TABLET GT SCH (12:36)
--- NOTE | 2020-10-07 12:50 | NUR ---
SANITARIAN INSPECTOR AT BEDSIDE FOR ROLDAN
[2020-10-07] MEDS ORDERED: PIPERACILLIN /TAZOBACTAM 2.25 G in IV D5W 50 ML IV SCH (13:00)
[2020-10-07] MEDS: ropiniROLE 0.5 MG TABLET GT SCH ×2 (13:42→21:43)
--- NOTE | 2020-10-07 13:54 | NUR ---
PATIENT HAD A BOWEL MOVEMENT. SOFT WATERY IN CONSISTENCY, DARK BROWN IN COLOR. LARGE AMOUNT.
--- NOTE | 2020-10-07 14:16 | NUR ---
CLEANED PATIENT. CHANGED UNSTAGEABLE SACROCOCCYX PRESSURE ULCER DRESSING.
[2020-10-07] MEDS ORDERED: ARGININE/GLUTAMINE/CALCIUM BMB 1 EACH POWD.PACK GT SCH (17:00)
[2020-10-07] MEDS: FERROUS SULFATE UDC 300 MG/5 ML UDC GT SCH (17:51)
[2020-10-07] MEDS: DOCUSATE SODIUM LIQ 100 MG/10 ML UDC GT SCH (18:00)
--- NOTE | 2020-10-07 18:33 | NUR ---
COLACE 100MG PO ON HOLD, PATIENT HAD LOOSE WATERY STOOL.
--- NOTE | 2020-10-07 18:48 | NUR ---
MADE DR LYNN AWARE OF PATIENT'S BS LEVEL. AWAITING ORDERS.
--- NOTE | 2020-10-07 19:00 | NUR ---
RECEIVED TELEPHONE ORDER FROM DR LYNN OF MILD SLIDING SCALE Q6H PRN. CARRIED OUT. ORDER FORM SENT TO PHARMACY.
[2020-10-07] MEDS ORDERED: DEXTROSE 50%-WATER 50 ML DISP.SYRIN IV PRN (19:30)
--- NOTE | 2020-10-07 19:41 | NUR ---
REPORT GIVEN TO DAVID LINCOLN FOR HAILEY
--- NOTE | 2020-10-07 19:46 | NUR ---
TOOK OVER PT CARE. PT REMAINS ON VENT, ON MECHANICAL MAINTENANCE SUPERVISOR, AND PULSE OX. PT CLEANED AND REPOSITIONED. WILL CONTINUE TO MONITOR.
[2020-10-07] MEDS: ATORVASTATIN 10 MG TABLET GT SCH (22:20)
--- NOTE | 2020-10-07 22:30 | NUR ---
PT REMAINS ON MONITOR AND PULSE OX. WILL CONTINUE TO MONITOR.
--- NOTE | 2020-10-07 23:45 | NUR ---
RT NOTE Pt [facility] mode. pt shows no signs of resp distress or sob. trach is patent and secured. pt sx'd for thick mod amt of pale yellow secretions. Vent plugged into red outlet. Alarms are set and audible. Ambu bag bedside. Will continue to monitor. Addendum: 10/07/20 at 2346 by DANUTA LI RT Amended: Links added.
[2020-10-08] MEDS ORDERED: BLOOD SUGAR DIAGNOSTIC 1 EACH STRIP IN SCH
[2020-10-08] MEDS: BLOOD SUGAR DIAGNOSTIC 1 EACH STRIP IN SCH ×4 (00:03→17:30)
[2020-10-08] MEDS ORDERED: INSULIN REGULAR, HUMAN 100 UNIT/ML 10 ML VIAL ONE (00:06)
[2020-10-08] MEDS: INSULIN REGULAR, HUMAN 100 UNIT/ML 3 ML VIAL SQ PRN ×3 (00:08→12:56)
[2020-10-08] MEDS: HYDROCORTISONE SOD SUCCINATE 100 MG/2 ML VIAL IV SCH ×2 (01:16→08:20)
--- NOTE | 2020-10-08 02:40 | NUR ---
Note adriane in EDM - 10/08/20 at 0247 by RHANGE PT REMAINS ON VENT, LINING FELLER AND PULSE OX. PT HAD A BM, PT WAS CLEANED. NOTED UNSTAGEABLE WOUND ON SACROCOCCYX. WOUND DRESSED, PT CHANGED INTO A NEW GOWN, PROVIDED WITH MORE BLANKETS. WILL CONTINUE TO MONITOR.
--- NOTE | 2020-10-08 02:41 | NUR ---
PT REMAINS ON VENT, GYROSCOPE TECHNICIAN AND PULSE OX. PT HAD A BM, PT WAS CLEANED. NOTED UNSTAGEABLE WOUND ON SACROCOCCYX. WOUND DRESSED, PT CHANGED INTO A NEW GOWN, PROVIDED WITH MORE BLANKETS. WILL CONTINUE TO MONITOR.
[2020-10-08] MEDS: ropiniROLE 0.5 MG TABLET GT SCH ×3 (05:06→21:20)
--- NOTE | 2020-10-08 05:22 | NUR ---
PT PROVIDED WITH BLANKETS, ON MONITOR, AND PULSE OX. VSS.
[2020-10-08 05:38] LABS: BASOPHILS % (AUTO) 0.2 % (0.0-2.0); EOSINOPHILS % (AUTO) 0.1 % (0.0-6.0); HEMATOCRIT 27 % (33-45); HEMOGLOBIN 8.6 g/dL (11.5-14.8); LYMPHOCYTES # (AUTO) 0.3 /CMM (0.8-4.8); LYMPHOCYTES % (AUTO) 5.2 % (20.0-44.0); MEAN CORPUSCULAR HGB CONC 32 g/dl (31.0-36.0); MEAN CORPUSCULAR VOLUME 83 fL (82-100); MONOCYTES # (AUTO) 0.1 /CMM (0.1-1.30); MONOCYTES % (AUTO) 1.5 % (2.0-12.0); NEUTROPHILS # (AUTO) 5.8 /CMM (1.8-8.9); PLATELET COUNT (AUTO) 515 /CMM (150-450); RED BLOOD CELL COUNT(AUTO) 3.26 MIL/uL (4.0-5.2); WHITE BLOOD COUNT (AUTO) 6.2 K/uL (4.3-11.0)
[2020-10-08 05:48] LABS: CALCIUM, SERUM 8.9 mg/dL (8.5-10.1); MAGNESIUM 3.8 mg/dL (1.8-2.4); PHOSPHORUS 7.3 mg/dL (2.5-4.9); POTASSIUM 5.4 mmol/L (3.5-5.1)
--- NOTE | 2020-10-08 06:32 | NUR ---
PT ON INFORMATION TECHNOLOGY ASSISTANT AND PULSE OX. SAT 87%, WILL CONTINUE TO MONITOR.
[2020-10-08] MEDS: IV NS 0.9% 1,000 ML IV PRN (07:15)
--- NOTE | 2020-10-08 07:40 | NUR ---
REPORT GIVEN TO CARROLL LINCOLN FOR HAILEY
[2020-10-08] MEDS ORDERED: HYDROCODONE/APAP 5/325MG TABLET ONE ×2 (07:59→13:27)
[2020-10-08] MEDS: HYDROCODONE/APAP 5/325MG TABLET GT PRN ×2 (08:08→15:50)
[2020-10-08 08:12] LABS: COMPLEMENT C3, SERUM 109 mg/dL (82-167); COMPLEMENT C4, SERUM 21 mg/dL (12-38)
[2020-10-08] MEDS: FERROUS SULFATE UDC 300 MG/5 ML UDC GT SCH ×2 (08:15→16:52)
[2020-10-08] MEDS: ASPIRIN 81 MG TAB.CHEW GT SCH (08:15)
[2020-10-08] MEDS: LamoTRIgine 25 MG TABLET GT SCH (08:15)
[2020-10-08] MEDS: MEROPENEM 500 MG in IV NS 0.9% 50 ML IV SCH ×2 (08:16→21:20)
[2020-10-08] MEDS: PANTOPRAZOLE 40 MG VIAL IV SCH (08:16)
[2020-10-08] MEDS: INSULIN GLARGINE, 100 UNIT/ML CARTRIDGE SQ SCH ×2 (08:19→21:28)
--- NOTE | 2020-10-08 09:00 | NUR ---
pt in bed asleep appears to be comfortable. no s/s of pain or distress. turned and repositioned,
[2020-10-08 10:30] LABS: *ANA ANTI-CENTROMERE B AB <0.2 AI (0.0-0.9); *ANA ANTI-DNA(DS) AB, QN <1 IU/mL (0-9); *ANA ANTI-JO-1 <0.2 AI (0.0-0.9); *ANA ANTICHROMATIN ANTIBODY <0.2 AI (0.0-0.9); *ANA RNP ANTIBODIES <0.2 AI (0.0-0.9); *ANA SJOGREN'S ANTI-SS-A <0.2 AI (0.0-0.9); *ANA SJOGREN'S ANTI-SS-B <0.2 AI (0.0-0.9); *ANAANTI-SCLERODERMA-70 AB <0.2 AI (0.0-0.9); *ANASMITH AB <0.2 AI (0.0-0.9)
[2020-10-08] MEDS: DAKINS QUARTER STRENGTH (0.125%) 480 ML BOTTLE TOP SCH (11:30)
[2020-10-08] MEDS ORDERED: SODIUM POLYSTYRENE SULF. PWD 15 GM UDC PO ONE (13:00)
[2020-10-08 16:08] LABS: ABG BASE EXCESS -9.3 mmol/L; ABG OXYGEN SATURATION 81.5 % (92.0-98.5); ABG PCO2 32.4 mmHg (35.0-45.0); ABG PH 7.311 (7.350-7.450); ABG PO2 53.8 mmHg (75.0-100.0); AaDO2 230.2 mmHg; COHb 0.2 % (0.5-1.5); MetHb 0.6 % (0.0-1.5); O2Hb 80.8 % (94.0-97.0); PEEP,BG 5 cm H2O; SITE, ABG Right Brachial; VT, ABG 400 mL
--- NOTE | 2020-10-08 16:15 | NUR ---
pt desatting to 89%. rt made aware. abg done. reported blood gas levels to dr. murry and steffen angel. per dr bourne increase o2 to 60%. rt made aware and changed vent settings. pt now satting at 95%
--- NOTE | 2020-10-08 16:30 | NUR ---
adl care provided. wound care done. pt kept clean and dry. turned and repositioned,.
[2020-10-08] MEDS ORDERED: DOCUSATE SODIUM LIQ 100 MG/10 ML UDC ONE (16:51)
[2020-10-08] MEDS: DOCUSATE SODIUM LIQ 100 MG/10 ML UDC GT SCH (16:52)
[2020-10-08] MEDS: PANTOPRAZOLE 40 MG/PACK PACK GT SCH (21:20)
--- NOTE | 2020-10-08 21:37 | NUR ---
RT pt received on mechanical vent on current settings. trached, portex 8. vent plugged in to red outlet. ambu bag at [facility]. no sob, no resp distress. will continue to monitor.
[2020-10-08] MEDS: ATORVASTATIN 10 MG TABLET GT SCH (22:12)
[2020-10-08 22:30] VITALS: BP 95/65
--- NOTE | 2020-10-08 22:30 | NUR ---
PRODUCT CONTROL AND LOGISTICS ANALYSTAPPRENTICESHIP REPRESENTATIVE NOTES RECEIVED PATIENT FROM ER VIA [facility], PATIENT ON VENTILATOR DEPENDENT WITH VENT SETTINGS OF TV400, 0260, R14, PEEP5. ON OXYGEN AT 2L/MIN VIA NASAL CANNULA. ON GTF OF NEPHRO 45ML/HR INFUSING WELL. LEFT/RIGHT HAND G#18 IV LINE INTACT AND PATENT, FLUSHING WELL WITH NO BLEEDING OR S/S OF INFILTRATION NOTED. SKIN BODY ASSESSMENT DONE WITH SACRAL/BUTTOCKS WITH TREATMENT ORDER PACK WITH DAKIN'S MOISTENED GAUZE QS DAILY AND PRN. TURNED AND REPOSITIONED Q2HRS AND PRN & OFFLOADING. ON TONEY CATHETER NOTED WITH URINE OUTPUT OF 25CC. NO BELONGINGS UPON ADMISSION. ATTACHED TO [employer] SYSTEMS REPAIRER WITH INITIAL READING AT 57bpm. NO S/S OF PAIN/DISCOMFORT NOTED AT THIS TIME. NO FACIAL GRIMACING NOTED. BED LOW AND LOCKED ON SEMI FOWLERS POSITION. CALL LIGHT IN REACH. WILL CONTINUE TO MONITOR.
--- NOTE | 2020-10-08 22:51 | NUR ---
PT TRANSFERED TO 3RD FLOOR MED SURG. RT AT BEDSIDE. REPORT GIVEN TO RHODA LINCOLN FOR [facility].
--- NOTE | 2020-10-08 22:54 | NUR ---
RT pt transferred to floor. vent plugged in to red outlet. ambu bag at [facility]. no distress during transport. will continue to monitor
--- NOTE | 2020-10-08 22:55 | NUR ---
DIRECTOR MEETINGSCORD SPLICER NOTES RECEIVED PATIENT FROM ER VIA [facility], PATIENT ON VENTILATOR DEPENDENT WITH VENT SETTINGS OF [id number], [id number], R14, PEEP5. ON OXYGEN AT 2L/MIN VIA NASAL CANNULA. ON GTF OF NEPHRO 45ML/HR INFUSING WELL. LEFT/RIGHT HAND G#18 IV LINE INTACT AND PATENT, FLUSHING WELL WITH NO BLEEDING OR S/S OF INFILTRATION NOTED. SKIN BODY ASSESSMENT DONE WITH SACRAL/BUTTOCKS WITH TREATMENT ORDER PACK WITH DAKIN'S MOISTENED GAUZE QS DAILY AND PRN. TURNED AND REPOSITIONED Q2HRS AND PRN & OFFLOADING. ON TONEY CATHETER NOTED WITH URINE OUTPUT OF 25CC. NO BELONGINGS UPON ADMISSION. ATTACHED TO [place] DAY COORDINATOR WITH INITIAL READING AT 57bpm. NO S/S OF PAIN/DISCOMFORT NOTED AT THIS TIME. NO FACIAL GRIMACING NOTED. BED LOW AND LOCKED ON SEMI FOWLERS POSITION. CALL LIGHT IN REACH. WILL CONTINUE TO MONITOR. Addendum: 10/09/20 at 0117 by JONATHON FARRAR RN COMFORT MEASURES RENDERED. Addendum: 10/09/20 at 0541 by JONATHON FARRAR RN UNABLE TO MEASURE THE DEPTH AND WIDTH OF THE SACRAL/BUTTOCK PRESSURE ULCER, PATIENT O2 SATURATION LEVEL DESATTED.
[2020-10-09] MEDS: BLOOD SUGAR DIAGNOSTIC 1 EACH STRIP IN SCH ×5 (00:28→23:23)
[2020-10-09] MEDS: INSULIN REGULAR, HUMAN 100 UNIT/ML 3 ML VIAL SQ PRN ×5 (00:39→23:24)
--- NOTE | 2020-10-09 03:40 | NUR ---
TELE-RN NOTE: PAGED DR. LYNN REGARDING PATIENT'S CURRENT CONDITION, PATIENT IS ON 100% O2. PATIENT O2 SATURATION STILL ON THE LOW SIDE 80'S. ON VENT DEPENDENT, COMFORT MEASURES PROVIDED. AWAITING FOR ORDERS. Addendum: 10/09/20 at 0623 by [address]ON FARRAR RN DR[address] LYNN NOTIFIED OF VTE4. AWAITING FOR ORDER.
[2020-10-09 04:00] VITALS: BP 110/67
[2020-10-09] MEDS: ropiniROLE 0.5 MG TABLET GT SCH ×3 (06:22→21:01)
--- NOTE | 2020-10-09 06:23 | NUR ---
TELE CLOSING NOTE: PATIENT IN BED, ASLEEP EASILY AROUSABLE. NO S/SX OF ACUTE RESPIRATORY DISTRESS NOTED. PATIENT ON VENTILATOR DEPENDENT, TOLERATED WELL, TURNED AND REPOSITIONED FOR COMFORT Q2HRS. NO MANIFESTATION OF PAIN OR DISCOMFORT. NO FACIAL GRIMACING NOTED. TONEY CATHETER DRAINING WELL WITH URINE OUTPUT OF 500CC. WOUND TREATMENT DONE ON BUTTOCK/SACRAL. IV LINE ON RIGHT/LEFT HAND #18G PATENT AND INTACT. ON GTF FEEDING INFUSING AT DESIRED RATE. SAFETY PRECAUTIONS IN PLACE. WILL ENDORSE TO AM NURSE FOR CONTINUITY OF CARE. Addendum: 10/09/20 at 0643 by JONATHON FARRAR RN REMAINS ON CLIENT SOLUTIONS DIRECTOR 91BPM
--- NOTE | 2020-10-09 07:37 | NUR ---
TELE OPENING NOTES RECEIVED PATIENT ASLEEP IN BED, AWAKENS TO TACTILE/PAINFUL STIMULI. PT IS OBTUNDED, NO S/S OF PAIN LIKE GRIMACING OR MOANING NOTED AT THIS TIME. ON TRACH CONNECTED TO MECHANICAL VENTILATOR AT PRESCRIBED PARAMETERS, TOLERATING SETTINGS WELL WITH NO ACUTE RESPIRATORY DISTRESS NOTED. SP02 100%. TELE-MONITORING SHOWS NSR WITH HR ON THE 70'S, NO S/S OF CARDIAC DISTRESS NOTED. G-TUBE IN PLACE WITH FEEDING OF NEPHRO ONGOING AT 45ML HR, TOLERATING WELL. ASPIRATION PRECAUTIONS MAINTAINED. PIV'S ON LEFT HAND G#22 AND RIGHT HAND G#18 BOTH INTACT AND PATENT. LEFT FEMORAL HD CATHETER IN PLACE WITH DRESSING C/D/I. TONEY CATHETER IN PLACE WITH NO URINE OUTPUT NOTED AT THIS TIME. SAFETY PRECAUTIONS IN PLACE: BED IN LOWEST LOCKED POSITION WITH SR UP X3. CALL LIGHT W/IN REACH. WILL CONTINUE TO MONITOR PT ACCORDINGLY.
[2020-10-09 08:00] VITALS: BP 105/76
[2020-10-09 08:08] LABS: BASOPHILS % (AUTO) 0.3 % (0.0-2.0); HEMATOCRIT 28 % (33-45); HEMOGLOBIN 8.8 g/dL (11.5-14.8); LYMPHOCYTES # (AUTO) 0.5 /CMM (0.8-4.8); LYMPHOCYTES % (AUTO) 5.4 % (20.0-44.0); MEAN CORPUSCULAR HGB CONC 32 g/dl (31.0-36.0); MEAN CORPUSCULAR VOLUME 82 fL (82-100); MONOCYTES # (AUTO) 0.3 /CMM (0.1-1.30); NEUTROPHILS # (AUTO) 7.6 /CMM (1.8-8.9); NEUTROPHILS % (AUTO) 90.3 % (43.0-81.0); PLATELET COUNT (AUTO) 452 /CMM (150-450); RED BLOOD CELL COUNT(AUTO) 3.39 MIL/uL (4.0-5.2); WHITE BLOOD COUNT (AUTO) 8.4 K/uL (4.3-11.0)
[2020-10-09 08:23] LABS: ALBUMIN 1.5 g/dL (3.4-5.0); BILIRUBIN,TOTAL 0.3 mg/dL (0.2-1.0); CALCIUM, SERUM 7.9 mg/dL (8.5-10.1); MAGNESIUM 3.6 mg/dL (1.8-2.4); PHOSPHORUS 7.4 mg/dL (2.5-4.9); POTASSIUM 4.4 mmol/L (3.5-5.1); TOTAL PROTEIN, SERUM 6.7 g/dL (6.4-8.2)
[2020-10-09 08:26] LABS: CREATININE 9.8 mg/dL (0.6-1.3)
[2020-10-09] MEDS: PANTOPRAZOLE 40 MG/PACK PACK GT SCH ×2 (09:03→21:01)
[2020-10-09] MEDS: LamoTRIgine 25 MG TABLET GT SCH (09:03)
[2020-10-09] MEDS: DAKINS QUARTER STRENGTH (0.125%) 480 ML BOTTLE TOP SCH (09:03)
[2020-10-09] MEDS: ASPIRIN 81 MG TAB.CHEW GT SCH (09:03)
[2020-10-09] MEDS: FERROUS SULFATE UDC 300 MG/5 ML UDC GT SCH ×2 (09:03→17:26)
[2020-10-09] MEDS: MEROPENEM 500 MG in IV NS 0.9% 50 ML IV SCH ×2 (09:27→20:37)
--- NOTE | 2020-10-09 09:32 | NUR ---
RN NOTES PT SEEN AND EVALUATED BY DR MCGRAW WITH ORDER TO GIVE MORPHINE 2MG IVP Q 2HRS PRN. WILL CARRY OUT ORDER.
[2020-10-09] MEDS: MORPHINE SULFATE INJ 2 MG/ML DISP.SYRIN IV PRN ×2 (09:46→11:12)
[2020-10-09] MEDS: INSULIN GLARGINE, 100 UNIT/ML CARTRIDGE SQ SCH ×2 (09:55→20:39)
[2020-10-09] MEDS ORDERED: MORPHINE SULFATE PF DRIP 250 MG in IV D5W 240 ML IV PRN (11:30)
[2020-10-09 12:00] VITALS: BP 104/64
[2020-10-09] MEDS ORDERED: KEY,NONCONTROL,TO KEEP IN PYXI 1 EA MC ONE ×2 (14:26→20:14)
--- NOTE | 2020-10-09 14:45 | NUR ---
RN NOTES PATIENT STARTED ON MORPHINE DRIP AT 2MG/HR AND TITRATE PER MD ORDER TO RIGHT HAND. WILL CONTINUE TO MONITOR.
[2020-10-09 16:00] VITALS: BP 102/77
[2020-10-09] MEDS: DOCUSATE SODIUM LIQ 100 MG/10 ML UDC GT SCH (17:27)
--- NOTE | 2020-10-09 18:50 | NUR ---
TELE CLOSING NOTES PATIENT IN BED LYING AT MODERATE HIGH BACKREST POSITION. PT IS OBTUNDED AND RESPONSIVE TO PAINFUL STIMULI. ON MECHANICAL VENTILATOR AT PRESCRIBED PARAMETERS, TOLERATING SETTINGS WELL WITH NO ACUTE RESPIRATORY DISTRESS NOTED. EXTERNAL MONITOR SHOWS NSR WITH HR ON THE 70'S, NO S/S OF CARDIAC DISTRESS NOTED. G-TUBE IN PLACE WITH FEEDING OF NEPHRO ONGOING AT 45ML HR, TOLERATING WELL. ASPIRATION PRECAUTIONS MAINTAINED. PIV'S ON LEFT HAND G#22 AND RIGHT HAND G#18 BOTH INTACT AND PATENT, MORPHINE DRIP AT 2MG/HR INFUSING WELL. NO S/S OF INFILTRATIONS TA SITE NOTED. LEFT FEMORAL HD CATHETER IN PLACE WITH DRESSING C/D/I. TONEY CATHETER IN PLACE WITH ONLY 10ML OF URINE OUTPUT NOTED DURING SHIFT. PT KEPT CLEAN DRY AND COMFORTABLE. ALL NEEDS AND CARE PROVIDED WELL. SAFETY PRECAUTIONS KEPT IN PLACE: BED IN LOWEST LOCKED POSITION WITH SR UP X3. CALL LIGHT W/IN REACH. WILL ENDORSE TO HARBOR TUG CAPTAIN NURSE FOR [place].
[2020-10-09 20:00] VITALS: BP 89/55
[2020-10-09] MEDS ORDERED: VANCOMYCIN 1 GM in IV D5W 250ml IV SCH (21:00)
[2020-10-09] MEDS: ATORVASTATIN 10 MG TABLET GT SCH (21:01)
[2020-10-09] MEDS ORDERED: INSULIN GLARGINE, 100 UNIT/ML CARTRIDGE SQ SCH (22:00)
[2020-10-10] VITALS: BP 81/50
[2020-10-10 04:00] VITALS: BP 78/55
[2020-10-10] MEDS: ropiniROLE 0.5 MG TABLET GT SCH ×2 (05:11→12:43)
[2020-10-10] MEDS: BLOOD SUGAR DIAGNOSTIC 1 EACH STRIP IN SCH ×2 (05:11→11:56)
--- NOTE | 2020-10-10 06:38 | NUR ---
RN CLOSING NOTES Pt responsive to pain stimuli only. Morphine drip at 10mg/hr at the moment, RR 20cpm, with better improvement in work of breathing, minimal use of accessory muscles noted. Due meds given as ordered. Kept on bed clean, dry and comfortable. Endorsed.
--- NOTE | 2020-10-10 07:20 | NUR ---
[employer] PI DEVELOPER OPENING NOTES PATIENT IN BED LYING AT SEMI DURAN'S POSITION. OBTUNDED AND RESPONSIVE ONLY TO PAIN STIMULI. ON TRACH CONNECTED TO MECHANICAL VENTILATOR AT PRESCRIBED PARAMETERS, TOLERATING SETTINGS WELL WITH NO ACUTE RESPIRATORY DISTRESS NOTED AT THIS TIME. EXTERNAL MONITOR SHOWS NSR, IST DEGREE AV BLOCK AND BBB WITH HR ON THE 60'S. PIV'S ON LEFT HAND G#22 AND RIGHT HAND G#18 BOTH INTACT AND PATENT, MORPHINE DRIP AT 10MG/HR INFUSING WELL TO RIGHT HAND. NO S/S OF INFILTRATION AT SITE NOTED. G-TUBE IN PLACE WITH FEEDING OF NEPHRO ONGOING AT 45ML HR, TOLERATING WELL. ASPIRATION PRECAUTIONS MAINTAINED. TONEY CATHETER IN PLACE WITH NO URINE OUTPUT NOTED. SAFETY PRECAUTIONS KEPT IN PLACE: BED IN LOWEST LOCKED POSITION WITH SR UP X3. CALL LIGHT W/IN REACH. WILL CONTINUE TO MONITOR PT'S STATUS.
[2020-10-10 08:00] VITALS: BP 79/49
[2020-10-10] MEDS: MEROPENEM 500 MG in IV NS 0.9% 50 ML IV SCH (08:39)
[2020-10-10] MEDS: PANTOPRAZOLE 40 MG/PACK PACK GT SCH (08:57)
[2020-10-10] MEDS: LamoTRIgine 25 MG TABLET GT SCH (08:57)
[2020-10-10] MEDS: ASPIRIN 81 MG TAB.CHEW GT SCH (08:57)
[2020-10-10] MEDS: FERROUS SULFATE UDC 300 MG/5 ML UDC GT SCH (08:58)
[2020-10-10] MEDS: DAKINS QUARTER STRENGTH (0.125%) 480 ML BOTTLE TOP SCH (09:03)
[2020-10-10] MEDS ORDERED: KEY,NONCONTROL,TO KEEP IN PYXI 1 EA MC ONE ×2 (10:24→15:57)
[2020-10-10] MEDS ORDERED: MORPHINE SULFATE PF DRIP 250 MG in IV D5W 240 ML IV PRN (11:30)
[2020-10-10 12:00] VITALS: BP 57/41
[2020-10-10] MEDS: INSULIN REGULAR, HUMAN 100 UNIT/ML 3 ML VIAL SQ PRN (12:09)
--- NOTE | 2020-10-10 14:44 | NUR ---
RN NOTES TELE DIRECTOR OF WOMEN'S SERVICES CALLED RN REGARDING PATIENT'S CARDIAC MONITORING IS ASYSTOLE. CHARGE NURSE JANET AND RN ASSESSED PATIENT; PATIENT NOT RESPONSIVE AND V/S NOT APPRECIATED. CHEST DOES NOT RAISE OR FALL. EYES ARE FIXED. CN JANET PRONOUNCED PATIENT AT 1355. ALEX MCKEON MADE AWARE. CALLED AND INFORMED GREGORIO WHITE THAT PATIENT ; STATED HE WILL COME VISIT. CALLED [facility] AND SPOKE TO ELEANOR; PATIENT IS NOT A CANDIDATE FOR [employer]. CASE # [id number] GIVEN. AWAITING ARRIVAL OF GREGORIO WHITE. WILL DO POST MORTEM CARE.
--- NOTE | 2020-10-10 16:21 | NUR ---
RN NOTES PT'S FAMILY CAME AND STATED THAT THEY ARRANGE MORTUARY FOR PT.
--- NOTE | 2020-10-10 16:36 | NUR ---
RN NOTES PATIENT'S FAMILY VISITED. GREGORIO SON SIGNED RECORD OF . POSTMORTEM CARE PERFORMED. BODY PICKED UP BY SECURITY AT 1625. CHART DOCUMENTS AND RECORD OF DOCUMENTS GIVE TO RN PARTS AND SERVICE MANAGER SUBHASH [place].
== END 2020-10-10 13:55 | disposition expired | DRG 720 ==
LOC: ER 12:46 → TRANSITION 20:49 → TELE 10-08 21:51
PROVIDERS: ADMIT Legal Medicine; ATTEND Nurse Practitioner Acute Care
PROC: 30233N1 Transfusion of Nonautologous Red Blood Cells into Peripheral Vein, Percutaneous Approach (ICD-10-PCS; 2020-10-06)
PROC: 06HY33Z Insertion of Infusion Device into Lower Vein, Percutaneous Approach (ICD-10-PCS; 2020-10-08)
PROC: 5A1935Z Respiratory Ventilation, Less than 24 Consecutive Hours (ICD-10-PCS; principal; 2020-10-09)
DX: A41.9 Sepsis, unspecified organism (principal); I21.4 Non-ST elevation (NSTEMI) myocardial infarction; E11.22 Type 2 diabetes mellitus with diabetic chronic kidney disease; Z66 Do not resuscitate; Z51.5 Encounter for palliative care; E86.0 Dehydration; I12.9 Hypertensive chronic kidney disease with stage 1 through stage 4 chronic kidney disease, or unspecified chronic kidney disease; G93.1 Anoxic brain damage, not elsewhere classified; J95.851 Ventilator associated pneumonia; G93.41 Metabolic encephalopathy; N17.0 Acute kidney failure with tubular necrosis; N18.30 Chronic kidney disease, stage 3 unspecified; E87.5 Hyperkalemia; D64.9 Anemia, unspecified; E11.69 Type 2 diabetes mellitus with other specified complication; M46.28 Osteomyelitis of vertebra, sacral and sacrococcygeal region; Z86.73 Personal history of transient ischemic attack (TIA), and cerebral infarction without residual deficits; Z93.0 Tracheostomy status; Z93.1 Gastrostomy status; R13.10 Dysphagia, unspecified; K21.9 Gastro-esophageal reflux disease without esophagitis; M62.422 Contracture of muscle, left upper arm; M62.421 Contracture of muscle, right upper arm; Z20.828 Contact with and (suspected) exposure to other viral communicable diseases; Z79.01 Long term (current) use of anticoagulants; Z79.82 Long term (current) use of aspirin; Z79.4 Long term (current) use of insulin; Z79.899 Other long term (current) drug therapy; Z79.51 Long term (current) use of inhaled steroids; E78.5 Hyperlipidemia, unspecified; E87.2 Acidosis; E87.6 Hypokalemia; I48.91 Unspecified atrial fibrillation; I48.92 Unspecified atrial flutter; J96.20 Acute and chronic respiratory failure, unspecified whether with hypoxia or hypercapnia; M89.9 Disorder of bone, unspecified; Y84.9 Medical procedure, unspecified as the cause of abnormal reaction of the patient, or of later complication, without mention of misadventure at the time of the procedure; Y82.9 Unspecified medical devices associated with adverse incidents; Y92.9 Unspecified place or not applicable; I49.8 Other specified cardiac arrhythmias; E83.41 Hypermagnesemia; E66.9 Obesity, unspecified; Z68.30 Body mass index [BMI] 30.0-30.9, adult; E87.1 Hypo-osmolality and hyponatremia; R65.21 Severe sepsis with septic shock
CPT/HCPCS: 31720; 36415; 36600; 71045-TC; 76770-TC; 80048-TC; 80053-TC; 80076-TC; 81001; 82533; 82803-TC; 82962-TC; 83605-TC; 83735-TC; 84100-TC; 84484-TC; 85025-TC; 85652-TC; 85730-TC; 86225; 86235; 86706; 86803; 86850-TC; 87040-TC; 87081-TC; 87086-TC; 87186-TC; 87340; 94003-TC; 94760-TC; 94799-TC; 99082-TC; A6253; A6403; C1750; C1751; C9113; C9803; G0378; J0610; J1720; J1815; J1956; J2185; J2270; J2274; J3370; J3490; J7030; J7050; J7060; P9016-BL; U0003